=== PATIENT | female | born 1970 | race Hispanic/Latino ===

== ENCOUNTER 2019-08-03 15:20 | Observation (INO) | payer BC ==
[2019-08-03 15:54] VITALS: BMI 39.1
[2019-08-03] MEDS ORDERED: D50W 25 GM/50 ML SYRINGE IV PRN (16:01)
[2019-08-03] MEDS ORDERED: GLUCAGON 1 MG/VIAL IM PRN (16:01)
[2019-08-03] MEDS ORDERED: DIPHENHYDRAMINE 25 MG TAB/CAP PO PRN (16:03)
[2019-08-03] MEDS ORDERED: ACETAMINOPHEN 325 MG TABLET PO PRN (16:03)
[2019-08-03] MEDS ORDERED: POLYETHYL GLY 3350 17 GM/DOSE PO PRN (16:03)
[2019-08-03] MEDS ORDERED: SODIUM CHLORIDE 0.9% 10ML INJ IV PRN (16:03)
[2019-08-03] MEDS ORDERED: LOPERAMIDE HCL 2 MG CAPSULE PO PRN (16:03)
[2019-08-03] MEDS ORDERED: ONDANSETRON 4 MG/2 ML VIAL IV PRN (16:03)
[2019-08-03 16:27] LABS: Absolute Lymphocytes (CBC) 2.9 K/uL (0.7-4.9); Basophils % 0.7 % (0-1.3); Hematocrit 37.8 % (36.0-45.0); Lymphocytes % 32.8 % (15.3-44.8); MPV 9.2 fL (7.6-11.3); RBC Red Blood Cell Count 4.05 M/uL (3.86-4.86)
[2019-08-03] MEDS: INSULIN -REGULAR HUMAN 50 UNIT/0.5 ML ML SQ SCH ×2 (16:30→21:00)
[2019-08-03 16:33] LABS: Protime INR 1.03
[2019-08-03] MEDS ORDERED: INFLUENZA VACCINE (for 3y+) 0.5 ML DOSE IMVAC ONE (17:00)
[2019-08-03] MEDS ORDERED: PNEUMOCOCCAL VACCINE 0.5 ML IMVAC ONE (17:00)
[2019-08-03] MEDS ORDERED: CEFOXITIN/SWI 1gm 1 GM/10 ML SYR IVP SCH (17:00)
[2019-08-03] MEDS ORDERED: CEFOXITIN 2 GM in NA CHLORIDE 0.9% 100 ML IVPB SCH (17:00)
--- NOTE | 2019-08-03 17:01 | RAD REPORT ---
EXAM DESCRIPTION: RAD - Chest Pa And Lat (2 Views) - 08/03/2019 4:54 pm CLINICAL HISTORY: abd pain Chest pain. COMPARISON: Chest Pa And Lat (2 Views) dated 08/10/2017; CHEST PA AND LAT 2 VIEW dated 04/24/2015; [facility] SINGLE VIEW dated 03/18/2015; CHEST PA AND LAT 2 VIEW dated 03/14/2014 FINDINGS: The lungs are clear. The heart is normal in size. No displaced fractures. IMPRESSION: No acute or concerning finding suspected.
--- NOTE | 2019-08-03 17:04 | RAD REPORT ---
EXAM DESCRIPTION: CT - Stone Protocol - 08/03/2019 4:49 pm CLINICAL HISTORY: Flank pain. abd pain COMPARISON: Abdomen Pelvis W Contrast dated 08/10/2017 TECHNIQUE: Axial images were obtained without oral or IV contrast. Lack of contrast limits solid org an and vascular assessment. The [id number] spans the entirety of the system partially obscuring uppermost abdomen and lung bases. Coronal reformatted images were obtained and reviewed. All CT scans are performed using dose optimization technique as appropriate and may include automated exposure control or mA/KV adjustment according to patient size. FINDINGS: The lower lung schmidt are clear. Cholecystectomy clips. Imaged portions of the liver and spleen show no suspicious findings on non-contrast imaging. The panc reas and adrenal glands are normal. No pathologic lymphadenopathy in the abdomen or pelvis. No urinary tract stones or obstructive uropathy. No bowel obstruction, free air, free fluid or abscess. Normal appendix noted. Postsurgical changes involve the lower lumbar spine with hardware in place. Mild anterolisthesis of L 5 on S1 is noted. IMPRESSION: No urinary tract stones or obstructive uropathy. No acute process is demonstrated.
[2019-08-03 17:05] LABS: Urine Appearance CLEAR; Urine Bilirubin NEGATIVE (NEG); Urine Blood NEGATIVE (NEG); Urine Color YELLOW; Urine Glucose NEGATIVE (NEG); Urine Protein NEGATIVE (NEG); Urine Urobilinogen 0.2 mg/dL (0.2-1.0)
[2019-08-03 17:11] LABS: Albumin 3.6 g/dL (3.4-5.0); Bilirubin Direct 0.1 mg/dL (0-0.2); Bilirubin Total 0.4 mg/dL (0.2-1.0); Magnesium 1.8 mg/dL (1.8-2.4); Phosphorus 2.8 mg/dL (2.5-4.9); Potassium 3.6 mmol/L (3.5-5.1); Protein, Total 7.2 g/dL (6.4-8.2); Thyroid Stimulating Hormone 0.729 uIU/mL (0.360-3.740)
[2019-08-03] MEDS: NACHLORIDE 0.45% 1,000 ML IV SCH (17:18)
[2019-08-03] MEDS: HYDROMORPHONE HCL 1 MG/ML INJ IV PRN ×2 (17:18→20:47)
[2019-08-03] MEDS: CEFOXITIN/SWI 2gm 2 GM/20 ML SYR IV SCH (17:19)
[2019-08-03 17:21] LABS: UR MICROALBUMIN < 0.5 mg/dL (< 1.9)
[2019-08-03] MEDS: ENOXAPARIN 40 MG/0.4 ML SQ SCH (17:28)
[2019-08-03 17:39] VITALS: O2SAT 100
[2019-08-03 18:30] LABS: Urine Bacteria 20-50 /HPF (<20); Urine Culture Reflex Order REFLEXED; Urine RBC <5 /HPF (NONE SEEN)
[2019-08-03] MEDS ORDERED: POTASSIUM CL SA 10 MEQ TAB PO ONE (19:00)
[2019-08-03] MEDS ORDERED: MAGNESIUM SULFATE 1 gm IVPB 1 GM/100 ML BAG IV ONE (19:00)
[2019-08-04] MEDS: CEFOXITIN/SWI 2gm 2 GM/20 ML SYR IV SCH ×3 (00:58→17:55)
--- NOTE | 2019-08-04 05:14 | EKG ---
Test Date: 2019-08-03 Test Time: 17:14:29 Canoe Inspector: RADHA MEASUREMENT RESULTS: Intervals: Rate: 62 IL: 118 QRSD: 88 QT: 448 QTc: 454 [place]: P: 37 IL: 118 QRS: 35 T: 14 INTERPRETIVE STATEMENTS: Normal sinus rhythm Normal ECG Compared to ECG 08/10/2017 12:57:59 Sinus bradycardia no longer present Electronically Signed On 08-04-19 05:13:57 CDT by Jose Maldonado
[2019-08-04 05:37] LABS: Absolute Lymphocytes (CBC) 2.9 K/uL (0.7-4.9); Basophils % 0.5 % (0-1.3); Hematocrit 34.8 % (36.0-45.0); Lymphocytes % 36.9 % (15.3-44.8); MPV 9.1 fL (7.6-11.3); RBC Red Blood Cell Count 3.77 M/uL (3.86-4.86)
[2019-08-04 05:48] LABS: Magnesium 2.1 mg/dL (1.8-2.4); Potassium 3.8 mmol/L (3.5-5.1)
[2019-08-04] MEDS: HYDROMORPHONE HCL 1 MG/ML INJ IV PRN (06:26)
[2019-08-04] MEDS ORDERED: KCL 20 MEQ/100 mL IVPB 20 MEQ/100 ML BAG IV SCH (07:00)
[2019-08-04] MEDS: INSULIN -REGULAR HUMAN 50 UNIT/0.5 ML ML SQ SCH ×4 (07:30→21:00)
[2019-08-04] MEDS: LOSARTAN POTASSIUM 50 MG TABLET PO SCH (09:00)
--- NOTE | 2019-08-04 09:42 | RAD REPORT ---
EXAM DESCRIPTION: CT - Chest Angio - 08/04/2019 9:28 am CLINICAL HISTORY: D Dimer 541, mid sternal chest pain with shortness of breath COMPARISON: No comparisons TECHNIQUE: Dynamically enhanced 3 mm thick images of the chest were obtained during administration o f approximately 150mL Isovue 370 IV contrast. Coronal and oblique MIP reconstruction images were gene rated and reviewed. Exam utilizes a protocol to evaluate the pulmonary arterial tree. All CT scans are performed using dose optimization technique as appropriate and may include automated exposure control or mA/KV adjustment according to patient size. FINDINGS: No pulmonary emboli are identified. The aorta as imaged shows no acute or suspicious finding. No pericardial thickening or effusion. No infiltrate or mass in the lung parenchyma. No pleural effusion or pleural thickening. No mediastinal or hilar suspicious masses. No chest wall masses or abnormal axillary lymphadenopathy. IMPRESSION: No pulmonary emboli identified. No aortic abnormality. No other significant or suspicious findings.
[2019-08-04] MEDS: ENOXAPARIN 40 MG/0.4 ML SQ SCH (10:55)
[2019-08-04] MEDS: PANTOPRAZOLE 40 MG INJ IVP SCH (10:56)
[2019-08-04] MEDS ORDERED: LORazepam 2 MG/ML VIAL IV ONE (12:04)
--- NOTE | 2019-08-04 16:56 | RAD REPORT ---
EXAM DESCRIPTION: IJPFiotlskyeekpk67/17/2019 3:15 pm CLINICAL HISTORY: Abdominal pain COMPARISON: August 03 2019 cat scan TECHNIQUE: Magnetic resonance cholangiogram was performed.3D MIP reconstruction performed FINDINGS: Cholecystectomy The biliary tree is normal caliber without a filling defect. Pancreatic duct is normal caliber IMPRESSION: Unremarkable exam
--- NOTE | 2019-08-04 19:10 | RAD REPORT ---
EXAM DESCRIPTION: USExtrem Venous W Compress Bil08/04/2019 7:05 pm CLINICAL HISTORY: Bilateral leg swelling COMPARISON: 2016 FINDINGS: The common femoral, superficial femoral, popliteal and posterior tibial veins bilaterally are compressible and demonstrate augmentation. Doppler demonstrates good flow. IMPRESSION: No evidence of deep venous thrombosis involving either lower extremity.
--- NOTE | 2019-08-04 19:29 | RAD REPORT ---
EXAM DESCRIPTION: CT - Abdomen Pelvis W Contrast - 08/04/2019 6:38 pm CLINICAL HISTORY: Abdominal pain COMPARISON: 2017 TECHNIQUE: Computed axial tomography of the abdomen pelvis was obtained. 100 cc Isovue-300 was admin istered intravenously. Oral contrast was not requested which limits evaluation of bowel and appendix. All CT scans are performed using dose optimization technique as appropriate and may include automated exposure control or mA/KV adjustment according to patient size. FINDINGS: The liver, spleen, pancreas, adrenal and kidneys appear unremarkable. There is no evidence of diverticulitis. Postsurgical changes involve the lumbar spine Hysterectomy and cholecystectomy IMPRESSION: No acute abnormality is displayed.
--- NOTE | 2019-08-05 00:13 | PN ---
Subjective: Patient is still feeling a significant amount of pain. She denies any chest pain, nause a, vomiting. She has right upper abdominal pain which is mainly on the side near the edge of the abd omen on the upper side. There is no rash. The pain is chronic but worsened lately. She has had a f ull evaluation done by Dr. Hilliard before with endoscopy. Physical Examination: Vital Signs: Her blood pressure 124/50. Chest: Clear. Heart: Regular. Abdomen: No guarding, no rebound, no rigidity. There is tenderness in right upper quadrant as descr ibed above on the lateral side. Lab examination is normal. Her CT pulmonary angiogram done for D-dimer elevation was normal. Her CT abdomen stone protocol was normal. Now ordered MRCP because of slight alkaline phosphatase elevatio n and that was normal or suspected. She might have choledocholithiasis, which she did not. From to her D-dimer which is slightly high, may be a nonspecific finding without any other clinical findings. We will do hypercoagulation profile tomorrow. Order CT abdomen with contrast. She may need a colo noscopy done. We will also order a Prometheus inflammatory bowel disease panel and venous Doppler of both legs. KERRY/JO ANN Voice ID: [id number] Report ID: [id number]
[2019-08-05] MEDS: CEFOXITIN/SWI 2gm 2 GM/20 ML SYR IV SCH ×2 (01:20→09:35)
[2019-08-05] MEDS: NACHLORIDE 0.45% 1,000 ML IV SCH (05:46)
[2019-08-05 06:15] LABS: Potassium 4.5 mmol/L (3.5-5.1)
[2019-08-05] MEDS: INSULIN -REGULAR HUMAN 50 UNIT/0.5 ML ML SQ SCH ×2 (07:30→11:30)
[2019-08-05] MEDS: LOSARTAN POTASSIUM 50 MG TABLET PO SCH (08:40)
[2019-08-05] MEDS: ENOXAPARIN 40 MG/0.4 ML SQ SCH ×2 (08:40→08:46)
[2019-08-05] MEDS: PANTOPRAZOLE 40 MG INJ IVP SCH (08:40)
[2019-08-05 09:52] VITALS: BP 133/80; TEMP 98.2
--- NOTE | 2019-08-05 12:43 | P.DS ---
Admission Date: 08/03/19 Discharge Date: 08/05/19 Disposition: ROUTINE DISCHARGE Discharge Condition: FAIR Hospital Course: HALI WAS ADMITTED FOR SEVERE RUQ PAIN BUT NOTHING PANNED OUT. STONE PROTOCOL CT, WITH CONTRAST CT, MRCP DID NOT SHOW ANY ISSUES. I ALSO DID CT ANGIO CHEST SHE HAD HIGH D DIMER. AND VENOUS DOPPLER ALL WERE OKAY. SHE MAY HAVE RADICULAR PAIN FROM R SIDE SPINE ISSUES. SHE IS STABLE FOR DC AND WILL CONTACT DR. BARROSO FOR CRC. Vital Signs/Physical Exam: Temp Pulse Resp BP Pulse Ox 98.2 F 79 16 133/80 97 08/05/19 08:00 08/05/19 08:00 08/05/19 08:00 08/05/19 08:00 08/05/19 08:00 Laboratory Data at Discharge: WBC 7.9 K/uL (4.3-10.9) 08/04/19 05:19 Hgb 12.4 g/dL (12.0-15.0) 08/04/19 05:19 Hct 34.8 % (36.0-45.0) L 08/04/19 05:19 Plt Count 219 K/uL (152-406) 08/04/19 05:19 PT 12.1 SECONDS (9.5-12.5) 08/03/19 16:14 INR 1.03 08/03/19 16:14 APTT 30.4 SECONDS (24.3-36.9) 08/03/19 16:14 Sodium 142 mmol/L (136-145) 08/05/19 05:44 Potassium 4.5 mmol/L (3.5-5.1) 08/05/19 05:44 BUN 6 mg/dL (7-18) L 08/05/19 05:44 Creatinine 0.81 mg/dL (0.55-1.3) 08/05/19 05:44 Glucose 150 mg/dL (74-106) H 08/05/19 05:44 Phosphorus 2.8 mg/dL (2.5-4.9) 08/03/19 16:14 Magnesium 2.1 mg/dL (1.8-2.4) 08/04/19 05:19 Total Bilirubin 0.4 mg/dL (0.2-1.0) 08/03/19 16:14 AST 10 U/L (15-37) L 08/03/19 16:14 ALT 18 U/L (12-78) 08/03/19 16:14 Alkaline Phosphatase 126 U/L (45-117) H 08/03/19 16:14 Amylase 49 U/L (25-115) 08/03/19 16:14 Lipase 93 U/L (73-393) 08/03/19 16:14 Home Medications: Losartan Potassium 50 mg PO DAILY 04/24/15 Insulin Glargine,Hum.rec.anlog [Scotty Jerez] 40 unit SQ DAILY 06/16/16
[2019-08-09 03:35] LABS: Vitamin D 1,25-Dihydroxy Total 61 pg/mL (18-72); Vitamin D,1,25-OH2, D2 <8 pg/mL
[2019-08-09 12:43] LABS: Protein C Antigen 77 % (70-140)
== END 2019-08-05 11:40 | disposition home or self-care (01) ==
LOC: 2ND 15:20
PROVIDERS: ADMIT Internal Medicine; ATTEND Internal Medicine
DX: R10.11 Right upper quadrant pain (principal); E11.9 Type 2 diabetes mellitus without complications; I10 Essential (primary) hypertension
CPT/HCPCS: 93005; 87040; 87088; 85025 ×2; 81001; 87086; 80048 ×3; 36415 ×3; 82150; 83735 ×2; 84100; 85610; 82962 ×10; 85379; 80076; 85730; 82652; 84443; 83036; 82570; 82553; 82607; 83690; 81241; 86038; 86225; 83090; 85302; 85305; 85306; 86147 ×2; 82043; 76377; 71275; 74176; 74177; 71046; 93970; 74181; Q9967 ×2; C9113 ×2; J1650 ×2; J3475; J1170 ×3; J0694 ×2; J2405; G0379; G0378 ×4

== ENCOUNTER 2020-01-11 12:19 | Emergency (ER) | payer BC ==
--- NOTE | 2020-01-11 13:48 | ER ---
Nurse's Notes [facility] Name: Gracy Carter Age: 49 yrs Sex: Female : 1970 Arrival Date: 01/11/2020 Time: 13:22 Bed Waiting Private MD: Diagnosis: Presentation: 01/10 13:24 Chief complaint: Patient states: exposed to confirmed coronavirus patient on Thursday. dm5 Spent about 10 minutes with the person but the person was keeping the patient's grandson, and the patient spent the rest of Thursday and all of Thursday with the grandson. pt reports a fever of 100.1 at home and took alkeselsor cold and flu at 0200 this morning. Pt also reports cough and headache. Coronavirus screen: Patient reports a subjective fever or greater than 100.4F, or cough, or shortness of breath, or difficulty breathing. Surgical mask placed on patient. Patient moved to private room, placed in contact and droplet isolation with eye protection until further assessment. Patient denies travel on a cruise ship or to a country the [facility] currently lists as an affected area. Patient reports contact with known and/or suspected case of COVID-19. Infection Prevention Nurse has been notified of patient in isolation for probable COVID-19. Ebola Screen: Patient negative for fever greater than or equal to 101.5 degrees Fahrenheit, and additional compatible Ebola Virus Disease symptoms Patient denies exposure to infectious person. Patient denies travel to an Ebola-affected area in the 21 days before illness onset. No symptoms or risks identified at this time. Initial Sepsis Screen: Does the patient meet any 2 criteria? No. Patient's initial sepsis screen is negative. Does the patient have a suspected source of infection? No. Patient's initial sepsis screen is negative. Risk Assessment: Do you want to hurt yourself or someone else? Patient reports no desire to harm self or others. 13:24 Method Of Arrival: Ambulatory dm5 13:24 Acuity: RADHA 4 dm5 Vital Signs: 13:24 BP 127 / 88; Pulse 97; Resp 18; Temp 98.4; Pulse Ox 97% on R/A; Weight 99.34 kg; Height dm5 5 ft. 4 in. (162.56 cm); Pain 9/10; 13:24 Body Mass Index 37.59 (99.34 kg, 162.56 cm) dm5 ED Course: 13:22 Patient arrived in ED. dm5 13:26 Triage completed. dm5 13:44 pt left because she was able to get an appointment with the health department. dm5 Administered Medications: No medications were administered Outcome: 13:45 Patient left the ED. dm5 Signatures: Haven Betancourt, RN RN dm5
[2020-01-11 13:56] VITALS: BP 127/88; TEMP 98.4; O2SAT 97
== END 2020-01-11 13:45 | disposition left against medical advice (07) ==
LOC: ER 12:19
DX: Z53.21 Procedure and treatment not carried out due to patient leaving prior to being seen by health care provider (principal)
CPT/HCPCS: 99281

== ENCOUNTER 2020-01-16 01:48 | Emergency (ER) | payer BC ==
--- OUTSIDE RECORDS SUMMARY | 2020-01-16 01:52 | XMS REPORT | Summary of Care ---
:1970 Author Organization [facility] Address [address] [place] [id number] Care Team Providers Name Role Phone Emil Bertrand Primary Care Provider Reason for Visit Reason Comments Fever Body Aches Cough Fatigue Nausea Encounter Details Date Type Department Care Team Description 01/11/2020 Urgent Care [facility] Family Unknown, Attending Acute URI ( Primary Dx); Medicine - [place] Estelle Barnhart PA [address] [place] [id number] Fever, unspecified fever cause; [address] [place] [address] [address], [place] [address] Allergies No Known Allergiesdocumented as of this encounter (statuses as of 01/14/2020) Medications Medication Sig Dispensed Refills Start Date End Date Status insulin inject 30 Units 0 Active glargine,hum.rec.anlog under the skin. (TOUJEO MAX U-300 SOLOSTAR SC) losartan 50 mg tablet Take 50 mg by 0 Active mouth daily. Omeprazole 20 mg Take by mouth. 0 Active tablet documented as of this encounter (statuses as of 01/14/2020) Active Problems No known active problemsdocumented as of this encounter (statuses as of 2019) Social History Tobacco Use Types Packs/Day Years Used Date Never Smoker Smokeless Tobacco: Never Used Alcohol Use Drinks/Week oz/Week Comments Never Alcohol Habits Answer Date Recorded How often do you have a drink containing alcohol? Never 01/11/2020 How many drinks containing alcohol do you have on a typical Not asked day when you are drinking? How often do you have six or more drinks on one occasion? Not asked Sex Assigned at Date Recorded Not on file Job Start Date Occupation Industry Not on file Not on file Not on file Travel History Travel Start Travel End No recent travel history available. documented as of this encounter Last Filed Vital Signs Vital Sign Reading Time Taken Comments Blood Pressure 121/84 01/11/2020 2:51 PM CDT Pulse 103 01/11/2020 2:41 PM CDT Temperature 38.8 C (101.8 F) 01/11/2020 2:41 PM CDT Respiratory Rate 19 01/11/2020 2:41 PM CDT Oxygen Saturation 98% 01/11/2020 2:41 PM CDT Inhaled Oxygen Concentration - - Weight - - Height - - Body Mass Index - - documented in this encounter Progress Notes Estelle Barnhart PA - 01/11/2020 3:00 PM CDT Cc: Chief Complaint Patient presents with Fever Body Aches Cough Fatigue Nausea Hali Teran is a 49 year old female. Patient presents with URI symptoms that began 2-3 days. Fever started last night , Tmax: 100.1. Travel: [facility], [place] 1 week ago. Known COVID19 exposure? Son's qvkeed-uk-nlk tested positive for COVID19. She was in contact with her 5 days ago. URI Presenting symptoms: congestion, cough, fatigue and fever Presenting symptoms: no ear pain, no facial pain, no rhinorrhea and no sore throat Duration: 2 days Timing: Intermittent Progression: Unchanged Chronicity: New Worsened by: Nothing Ineffective treatments: shawn nugent cold Associated symptoms: arthralgias and headaches (frontal, not worst CASE of life, not sudden/max onset.states she can deal with it) Associated symptoms: no myalgias, no neck pain, no sinus pain, no sneezing, no swollen glands and nowheezing Risk factors: chronic cardiac disease (HTN), diabetes mellitus and sick contacts Risk factors: not elderly, no chronic kidney disease, no chronic respiratory disease, no immunosuppression, no recent illness and no recent travel Allergies Hali has No Known Allergies. Medications Outpatient Medications Prior to Visit Medication Sig Dispense Refill insulin glargine,hum.rec.anlog (TOUJEO MAX U-300 SOLOSTAR SC) inject 30 Units under the skin. losartan 50 mg tablet Take 50 mg by mouth daily. Omeprazole 20 mg tablet Take by mouth. No facility-administered medications prior to visit. Histories Past Medical History: Diagnosis Date Diabetes Hypertension Past Surgical History: Procedure Laterality Date BACK SURGERY HYSTERECTOMY Social History Socioeconomic History Marital status: Spouse name: Not on file Number of children: Not on file Years of education: Not on file Highest education level: Not on file Occupational History Not on file Social Needs Financial resource strain: Not on file Food insecurity: Worry: Not on file Inability: Not on file Transportation needs: Medical: Not on file Non-medical: Not on file Tobacco Use Smoking status: Never Smoker Smokeless tobacco: Never Used Substance and Sexual Activity Alcohol use: Never Frequency: Never Drug use: Never Sexual activity: Not on file Lifestyle Physical activity: Days per week: Not on file Minutes per session: Not on file Stress: Not on file Relationships Social connections: Talks on phone: Not on file Gets together: Not on file Attends nondenominational service: Not on file Active member of club or organization: Not on file Attends meetings of clubs or organizations: Not on file Relationship status: Not on file Intimate partner violence: Fear of current or ex partner: Not on file Emotionally abused: Not on file Physically abused: Not on file Forced sexual activity: Not on file Other Topics Concern Not on file Social History Narrative Lives at home with , daughter Family History Problem Relation Age of Onset Diabetes Mother Cancer Mother Diabetes Father Review of Systems Constitutional: Positive for chills, fatigue and fever. Negative for activity change, appetite change and diaphoresis. HENT: Positive for congestion and postnasal drip. Negative for ear pain, facial swelling, mouth sores, rhinorrhea, sinus pressure, sinus pain, sneezing, sore throat, trouble swallowing and voice change. Eyes: Positive for discharge (watery). Negative for pain, redness and itching. Respiratory: Positive for cough. Negative for chest tightness, shortness of breath and wheezing. Cardiovascular: Negative for chest pain, palpitations and leg swelling. Gastrointestinal: Positive for nausea. Negative for abdominal pain, constipation , diarrhea and vomiting. Genitourinary: Negative for dysuria, urgency, frequency and flank pain. Musculoskeletal: Positive for arthralgias. Negative for back pain, joint swelling, myalgias, neck pain and neck stiffness. Skin: Negative for color change and rash. Neurological: Positive for headaches (frontal, not worst CASE of life, not sudden/ max onset. states she can deal with it). Negative for dizziness, syncope, weakness and light-headedness. Vital Signs BP 121/84 | Pulse 103 | Temp 38.8 C (101.8 F) (Oral) | Resp 19 | SpO2 98 % Physical Exam Constitutional: She is oriented to person, place, and time. She appears well- developed and well-nourished. No distress. HENT: Head: Normocephalic and atraumatic. Right Ear: Tympanic membrane, external ear and ear canal normal. Left Ear: Tympanic membrane, external ear and ear canal normal. Nose: Mucosal edema present. No rhinorrhea. Right sinus exhibits no maxillary sinus tenderness and no frontal sinus tenderness. Left sinus exhibits no maxillary sinus tenderness and no frontal sinus tenderness. Mouth/Throat: Oropharynx is clear and moist. No oropharyngeal exudate. + clear post nasal drip Eyes: Conjunctivae are normal. Neck: Normal range of motion. Neck supple. No neck rigidity. Cardiovascular: Normal rate, regular rhythm and normal heart sounds. Pulmonary/Chest: Effort normal and breath sounds normal. Abdominal: Soft. Bowel sounds are normal. She exhibits no distension. There is no tenderness. There is no rebound and no guarding. Musculoskeletal: Normal range of motion. She exhibits no edema. Lymphadenopathy: She has no cervical adenopathy. Neurological: She is alert and oriented to person, place, and time. Skin: Skin is warm and dry. No rash noted. She is not diaphoretic. Psychiatric: She has a normal mood and affect. Her behavior is normal. Nursing note and vitals reviewed. Assessment/Plan Acute URI (primary encounter diagnosis) Fever, unspecified fever cause Cough Plan: POCT FLU A AND B (MOLECULAR), CORONAVIRUS COVID-19 TESTING, CORONAVIRUS COVID-19 TESTING Results for HALI TERAN ( ) as of 01/12/2020 10:16 Ref. Range 01/11/2020 00:00 POCT INFLUENZA A Latest Ref Range: Negative - Negative negative POCT INFLUENZA B Latest Ref Range: Negative - Negative negative Well appearing, NAD, non-toxic. Lungs CTAB. O2 sat 98%. No shortness of breath. No respiratory distress. Negative flu. Patient with confirmed COVID-19 exposure , will get COVID 19 testing to further evaluate. Educated on the following at home care: -Increase water intake -Take over the counter vitamin C -Take Tylenol as needed, avoid nsaids, do not combine with Tylenol in the shawn seltzer. -Offered cough suppressant. Patient prefers to continue taking otc shawn seltzer cold. -REST -Wash hands often -Cover mouth when coughing -Wear mask with in the same room/car as others -Gargle with warm salt water as needed -Drink warm liquids as needed. -Throat lozenges as needed -Quarantine until your COVID results are back -Stay in your own bedroom and use a separate bathroom -Keep at least 6 feet from you and others -Avoid sharing personal household items, dishes, glasses, cups, towels -Clean high traffic/touch areas daily. These include but not limited to: doorknobs, refrigerator/cabinet handles, phones, keyboards, tablets, light switches. -Monitor your symptoms. Take your temperature 2 times daily. -Follow-up with PCP as needed, if no improvement. -Monitor your symptoms. Go to the ED if worsening symptoms: chest pain, difficulty breathing, coughing up blood, weakness, dizziness, passing out, AMS. Pt ed/precautions given in detail regarding conditions/medicaitons. Er precautions given. Pt reportsunderstanding and agrees. rtc if s/s worsen or do not improve; Plan of care, desired health behaviors, goals, Ddx, & any prescribed or OTC medications discussed with patient. Education resources & self management tools provided and reviewed with AVS. Patient/guardian/family verbalized understanding & agrees to plan of care. Barriers to care: NONE Ability to manage care: Good This visit did not involve counseling and coordination that comprised more than 50% of the visit time.Electronically signed by Estelle Barnhart PA at 2019 2:27 PM CDTdocumented in this encounter Plan of Treatment Health Maintenance Due Date Last Done Comments DTaP,Tdap,and Td Vaccines (1 - 1983 Tdap) Breast Cancer Screening 2012 (MAMMOGRAM) PAP SMEAR 10/07/2014 10/07/2011 INFLUENZA VACCINE (#1) 2019 PNEUMOCOCCAL 0-64 YEARS COMBINED Aged Out No longer eligible based on SERIES patient's age to complete this topic documented as of this encounter Procedures Procedure Name Priority Date/Time Associated Diagnosis Comments LAB ONLY CORONAVIRUS Routine 01/11/2020 2:46 Fever, unspecified Results for this COVID-19 PCR GNL PM CDT fever cause procedure are in Cough the results Acute URI section. CORONAVIRUS COVID-19 Routine 01/11/2020 2:46 Fever, unspecified Results for this TESTING PM CDT fever cause procedure are in Cough the results Acute URI section. POCT FLU A AND B Routine 01/11/2020 Fever, unspecified Results for this (MOLECULAR) fever cause procedure are in Cough the results Acute URI section. documented in this encounter Results LAB ONLY CORONAVIRUS COVID-19 PCR GNL (01/11/2020 2:46 PM CDT) SARS-CoV-2 Positive (A) Not Detected [facility] Specimen Swab - NASOPHARYNGEAL SWAB Narrative Performed At Not Detected: [facility] A negative result does not preclude COVID-19 infection and should not be used as the sole basis for treatment or other patient management decisions. Negative results must be combined with clinical observations, patient history, and epidemiological information. Presumptive Positive: Specimen will be sent to [facility] for confirmation testing. Inconclusive: Specimen will be sent to [facility] for additional testing. Invalid: Please collect a new specimen for repeat patient testing. Disclaimer: This test was developed and its performance characteristics determined by [facility]. It has not been cleared or approved by the US Food and Drug Administration (FDA). An Emergency Use Authorization (EUA) application is under preparation and FDA approval process. This test is used for clinical purposes. It should not be regarded as investigational or for research. This laboratory is certified under the Clinical Laboratory Improvement Amendments (CLIA) as qualified to perform high complexity clinical laboratory testing. Performing Organization Address City/State/Zipcode Phone Number [facility] CLIA: [id number], [address] [place] [address] [facility] CORONAVIRUS COVID-19 TESTING (01/11/2020 2:46 PM CDT) Specimen Swab - NASOPHARYNGEAL SWAB Performing Organization Address City/State/Zipcode Phone Number [facility] CLIA: [id number], [address] [place] [address] [facility] POCT FLU A AND B (MOLECULAR) (01/11/2020) POCT INFLUENZA A negative Negative - Negative POCT INFLUENZA B negative Negative - Negative Specimen Swab documented in this encounter Visit Diagnoses Diagnosis Acute URI - Primary Acute upper respiratory infections of unspecified site Fever, unspecified fever cause Cough documented in this encounter Insurance Payer Benefit Plan Subscriber ID Effective Dates Phone Address Type / Group [facility] [id number] 2018-Raghavendra [phone] [address] PPO/POS [place] - OUT OF t 7 [id number] [place] [address] (Work) documented as of this encounter"
--- OUTSIDE RECORDS SUMMARY | 2020-01-16 01:52 | XMS REPORT ---
:1970 [facility] Address [address] [place] [address] Dr. Sierra [address] [place] [id number] Care Team Providers Name Role Phone Unavailable Unavailable Unavailable Problems This patient has no known problems. Allergies, Adverse Reactions, Alerts This patient has no known allergies or adverse reactions. Medications This patient has no known medications.
--- OUTSIDE RECORDS SUMMARY | 2020-01-16 01:52 | XMS REPORT | Summary of Care ---
:1970 Author Organization [facility] Address [address] [place] [id number] Care Team Providers Name Role Phone Elza Emil Primary Care Provider Reason for Visit Reason Comments Results Encounter Details Date Type Department Care Team Description 01/13/2020 Telephone ACCESS CENTER Estelle Barnhart PA Results [address] [address] [place] [address] Allergies No Known Allergiesdocumented as of this encounter (statuses as of 01/13/2020) Medications Medication Sig Dispensed Refills Start Date End Date Status insulin inject 30 Units 0 Active glargine,hum.rec.anlog under the skin. (TOUJEO MAX U-300 [place]) losartan 50 mg tablet Take 50 mg by 0 Active mouth daily. Omeprazole 20 mg Take by mouth. 0 Active tablet documented as of this encounter (statuses as of 01/13/2020) Active Problems No known active problemsdocumented as [...] of this encounter Last Filed Vital Signs Not on filedocumented in this encounter Plan of Treatment Health Maintenance Due Date Last Done Comments DTaP,Tdap,and Td Vaccines (1 - 1983 Tdap) Breast Cancer Screening 2012 (MAMMOGRAM) PAP SMEAR 10/07/2014 10/07/2011 INFLUENZA VACCINE (#1) 2019 PNEUMOCOCCAL 0-64 YEARS COMBINED Aged Out No longer eligible based on SERIES patient's age to complete this topic documented as of this encounter Results Not on filedocumented in this encounter Additional Health Concerns Infection Noted Time Resolved Time COVID-19 Confirmed 01/12/2020 7:12 PM CDT documented as of this encounter Insurance Payer Benefit Plan Subscriber ID Effective Dates Phone Address Type / Group [facility] [id number] 2018-Raghavendra [phone] [address] PPO/POS [place] - OUT OF t 7 [id number] [place] [address] documented as of this encounter
[2020-01-16] MEDS ORDERED: IBUPROFEN 400 MG TAB ONE (02:15)
[2020-01-16] MEDS ORDERED: HYDROCODONE/CHLORPHEN 5 ML/OSYR ONE (02:17)
--- NOTE | 2020-01-16 02:51 | ER ---
Nurse's Notes [facility] Name: Gracy Carter Age: 49 yrs Sex: Female : 1970 Arrival Date: 01/16/2020 Time: 01:43 Bed 30 Private MD: Diagnosis: Coronavirus as the cause of diseases classified elsewhere;Acute bronchitis Presentation: 01/15 01:47 Chief complaint: Patient states: Reports she has been having fever for the past 6 days. ea Pt states " I was tested for the COVID last week and I have been having a fever since. Pt reports she last took Tylenol yesterday at 5 PM. Reports she has tried taking Tylenol every four hours and it has not helped her fever. States "today I blew my nose and bright red blood came out, I am diabetic and my blood sugar is in the 300's, I just don't think this is viral". Coronavirus screen: Pt COVID positive, placed in isolation, on droplet precaution. Ebola Screen: No symptoms or risks identified at this time. Initial Sepsis Screen: Does the patient meet any 2 criteria? HR > 90 bpm. Does the patient have a suspected source of infection? No. Patient's initial sepsis screen is negative. Risk Assessment: Do you want to hurt yourself or someone else? Patient reports no desire to harm self or others. 01:47 Method Of Arrival: Wheelchair ea 01:47 Acuity: RADHA 3 ea Triage Assessment: 01:58 General: Appears uncomfortable, Behavior is appropriate for age. Neuro: Level of ea Consciousness is awake, alert, obeys commands, Oriented to person, place, time, situation. Cardiovascular: Patient's skin is warm and dry. Respiratory: Airway is patent Respiratory effort is even, unlabored, Respiratory pattern is regular, symmetrical. Derm: Skin is pink, warm \\T\\ dry. Historical: - Allergies: 01:57 No Known Allergies; ea - PMHx: 01:57 Diabetes - IDDM; Hypertension; ea - Immunization history:: Adult Immunizations up to date. Screenin:55 Abuse screen: Denies threats or abuse. Nutritional screening: No deficits noted. ea Tuberculosis screening: No symptoms or risk factors identified. Fall Risk None identified. Assessment: 01:58 General: Appears uncomfortable, Behavior is appropriate for age. Pain: Complains of ea pain in nose. Pain: Quality of pain is described as burning. Neuro: Level of Consciousness is awake, alert, obeys commands, Oriented to person, place, time, situation. Cardiovascular: Patient's skin is warm and dry. Respiratory: Airway is patent Respiratory effort is even, unlabored, Respiratory pattern is regular, symmetrical. Derm: Skin is pink, warm \\T\\ dry. Vital Signs: 01:47 BP 137 / 96; Pulse 97; Resp 19; Temp 100(O); Pulse Ox 99% ; ea 02:16 BP 133 / 93; Resp 19; Temp 100; Pulse Ox 99% on R/A; cp 03:06 BP 133 / 93; Pulse 89; Resp 18; Temp 100; Pulse Ox 97% on R/A; ED Course: 01:43 Patient arrived in ED. sg 01:55 Triage completed. ea 01:56 Eric Noguera PA is PHCP. cp 01:56 Pal Grissom MD is Attending Physician. cp 01:56 Patient has correct armband on for positive identification. Placed in gown. Bed in low ea position. Call light in reach. 01:56 Arm band placed on right wrist. Patient placed in an exam room, on a stretcher, on ea pulse oximetry. 01:58 Brittany Blake, DUNCAN is Primary Nurse. ea 02:24 X-ray(s) taken. 02:41 Nurse Practitioner and/or Physician Tumbler Machine Operator to see patient. ah 02:42 XRAY Chest (1 view) In Process Unspecified. EDMS 03:06 No provider procedures requiring assistance completed. Patient did not have IV access during this emergency room visit. Administered Medications: 02:10 CANCELLED (not available): Albuterol HFA Inhaler 2 puffs Inhalation once cp 02:23 Drug: Ibuprofen 800 mg Route: PO; ea 03:11 Follow up: Response: No adverse reaction ah 02:23 Drug: Tussionex Pennkinetic ER 5 ml Route: PO; ea 03:11 Follow up: Response: No adverse reaction Outcome: 02:50 Discharge ordered by . cp 02:58 Discharged to home via wheelchair. 02:58 Condition: stable 02:58 Discharge instructions given to patient, Instructed on discharge instructions, follow up and referral plans. medication usage, Demonstrated understanding of instructions, follow-up care, medications, Prescriptions given X 2. 03:12 Patient left the ED. Signatures: Dispatcher [employer] EDMS Vinicio Medrano, RN RN Eric Elizabeth PA PA cp Antunez, Elena RN RN Ana Huntley RN RN
--- NOTE | 2020-01-16 02:51 | EDPHYS ---
Physician Documentation [facility] Name: Gracy Carter Age: 49 yrs Sex: Female : 1970 Arrival Date: 01/16/2020 Time: 01:43 Bed 30 Private MD: ED Physician Pal Grissom HPI: 01/15 02:09 This 49 yrs old Female presents to ER via Wheelchair with complaints of Fever cp - + COVID 19. 02:09 The patient or guardian reports cough, that is constant, with productive sputum, that cp is green. 02:09 Onset: The symptoms/episode began/occurred 5 day(s) ago. cp 02:09 The patient reports fever, with an emergency department temperature of 100 degrees cp Fahrenheit. 02:12 Patient reports having positive test for coronavirus 3 days ago after contact with cp nurse who works at local oncology center in [place]. Symptoms started 5 days ago. Historical: - Allergies: 01:57 No Known Allergies; ea - PMHx: 01:57 Diabetes - IDDM; Hypertension; ea - Immunization history:: Adult Immunizations up to date. ROS: 02:13 Eyes: Negative for injury, pain, redness, and discharge. cp 02:13 Constitutional: Positive for body aches, Negative for fever, poor PO intake. 02:13 ENT: Positive for rhinorrhea, sore throat, Negative for drainage from ear(s), ear pain, difficulty swallowing, difficulty handling secretions. 02:13 Cardiovascular: Positive for chest pain, with cough, Negative for edema, palpitations. 02:13 Respiratory: Positive for cough, with green sputum, shortness of breath, Negative for wheezing. 02:13 Abdomen/GI: Positive for diarrhea, Negative for abdominal pain, vomiting, constipation. 02:13 Skin: Negative for cellulitis, rash. 02:13 Neuro: Positive for weakness, Negative for altered mental status, headache. 02:13 All other systems are negative. Exam: 02:16 Head/Face: Normocephalic, atraumatic. cp 02:16 Constitutional: The patient appears in no acute distress, alert, awake, non-diaphoretic, non-toxic, well developed, well nourished. 02:16 Eyes: Periorbital structures: appear normal, Conjunctiva: normal, no exudate, no injection, Lids and lashes: appear normal, bilaterally. 02:16 ENT: External ear(s): are unremarkable, Ear canal(s): are normal, clear, TM's: dullness, bilaterally, Nose: is normal, Posterior pharynx: Airway: no evidence of obstruction, patent. 02:16 Neck: ROM/movement: is normal, is supple, without pain, no range of motions limitations, no meningismus. 02:16 Chest/axilla: Inspection: normal. 02:16 Cardiovascular: Rate: normal. 02:16 Respiratory: the patient does not display signs of respiratory distress, Respirations: normal, no use of accessory muscles, no retractions, labored breathing, is not present, Breath sounds: stridor, is not appreciated, + upper airway congestion. wheezing: is not appreciated. 02:16 Abdomen/GI: Exam negative for discomfort, distension, guarding, Inspection: abdomen appears normal. 02:16 Skin: no rash present. 02:16 Neuro: Orientation: to person, place \T\ time. Mentation: is normal, Motor: moves all fours. 02:16 Special observations: no signs respiratory distress observed. Vital Signs: 01:47 BP 137 / 96; Pulse 97; Resp 19; Temp 100(O); Pulse Ox 99% ; ea 02:16 BP 133 / 93; Resp 19; Temp 100; Pulse Ox 99% on R/A; cp 03:06 BP 133 / 93; Pulse 89; Resp 18; Temp 100; Pulse Ox 97% on R/A; ah MDM: 02:04 Patient medically screened. cp 02:22 Differential diagnosis: respiratory distress viral Infection, bacterial infection, cp bronchitis, pneumonia. 02:49 Test interpretation: by ED physician or midlevel provider: chest xray negative for cp infiltrates and focal pneumonia. 02:49 Data reviewed: vital signs, nurses notes, lab test result(s), radiologic studies, plain cp films. Counseling: I had a detailed discussion with the patient and/or guardian regarding: the historical points, exam findings, and any diagnostic results supporting the discharge/admit diagnosis, lab results, radiology results, to return to the emergency department if symptoms worsen or persist or if there are any questions or concerns that arise at home. Response to treatment: the patient's symptoms have markedly improved after treatment, and as a result, I will discharge patient. ED course: VSS. Patient appears non-toxic and no signs of respiratory distress. Will discharge to home to continue self quarantine and symptomatic treatment. 01/15 02:41 Order name: Glucose, Ancillary Testing; Complete Time: 02:49 EDCT 01/15 02:49 Interpretation: Reviewed. 01/15 02:08 Order name: XRAY Chest (1 view) 01/15 02:08 Order name: Accucheck Blood Glucose; Complete Time: 02:25 cp Administered Medications: 02:10 CANCELLED (not available): Albuterol HFA Inhaler 2 puffs Inhalation once cp 02:23 Drug: Ibuprofen 800 mg Route: PO; ea 03:11 Follow up: Response: No adverse reaction 02:23 Drug: Tussionex Pennkinetic ER 5 ml Route: PO; ea 03:11 Follow up: Response: No adverse reaction Disposition: 05:37 Co-signature as Attending Physician, Pal Grissom MD. rn Disposition: 01/16/20 02:50 Discharged to Home. Impression: Coronavirus as the cause of diseases classified elsewhere, Acute bronchitis. - Condition is Stable. - Discharge Instructions: Acute Bronchitis, Adult, Viral Respiratory Infection. - Prescriptions for Albuterol Sulfate 90 mcg/actuation - inhale 1-2 puff by INHALATION route every 4-6 hours; 1 Inhaler. Guaifenesin AC 10- 100 mg/5 mL Oral Liquid - take 10 milliliter by ORAL route every 4 hours As needed; 240 milliliter. - Medication Reconciliation Form, Thank You Letter, Antibiotic Education, Prescription Opioid Use form. - Follow up: Emergency Department; When: As needed; Reason: Worsening of condition. - Problem is new. - Symptoms have improved. - Notes: continue to self quarantine for at least 14 days from onset of symptoms Signatures: Dispatcher [employer] EDCT Pal Grissom MD MD rn Page, Corey, PA PA cp Antunez, Elena, RN RN ea Harris, Amy RN RN Corrections: (The following items were deleted from the chart) 02:10 02:08 Albuterol HFA Inhaler 2 puffs Inhalation once ordered. cp 03:12 02:50 01/16/2020 02:50 Discharged to Home. Impression: Coronavirus as the cause of ah diseases classified elsewhere; Acute bronchitis. Condition is Stable. Forms are Medication Reconciliation Form, Thank You Letter, Antibiotic Education, Prescription Opioid Use. Follow up: Emergency Department; When: As needed; Reason: Worsening of condition. Problem is new. Symptoms have improved. cp
[2020-01-16 03:19] VITALS: BP 133/93; TEMP 100
[2020-01-16 03:20] VITALS: O2SAT 97
--- NOTE | 2020-01-16 07:32 | RAD REPORT ---
EXAM DESCRIPTION: RAD - Chest Single View - 01/16/2020 2:41 am CLINICAL HISTORY: Cough;Chest pain, hyperglycemia COMPARISON: Two view chest July 2019 TECHNIQUE: AP portable chest image was obtained 01/16/2020 2:41 am . FINDINGS: Lungs are clear. Heart and vasculature are normal. No measurable pleural effusion and no p neumothorax. No acute bony abnormality seen. No acute aortic findings suspected. IMPRESSION: No acute cardiopulmonary process.
== END 2020-01-16 03:12 | disposition home or self-care (01) ==
LOC: ER 01:48
DX: J20.9 Acute bronchitis, unspecified (principal); B97.29 Other coronavirus as the cause of diseases classified elsewhere; I10 Essential (primary) hypertension
CPT/HCPCS: 71045; 82947; 99284

== ENCOUNTER 2021-12-17 09:03 | Observation (INO) | payer BC ==
[2021-12-17 10:20] LABS: Absolute Lymphocytes (CBC) 2.3 K/uL (0.7-4.9); Hematocrit 40.3 % (36.0-45.0); Lymphocytes % 31.7 % (15.3-44.8); MPV 8.6 fL (7.6-11.3); RBC Red Blood Cell Count 4.29 M/uL (3.86-4.86)
[2021-12-17 10:26] LABS: Protime INR 1.03
[2021-12-17 10:37] LABS: Urine Appearance CLEAR (Clear); Urine Bilirubin NEGATIVE (Negative); Urine Blood NEGATIVE (Negative); Urine Color YELLOW (Yellow); Urine Glucose NEGATIVE (Negative); Urine Protein NEGATIVE (Negative); Urine Urobilinogen 0.2 mg/dL (0.2-1.0); Urine pH 7.5 (5.0-7.0)
[2021-12-17 10:43] LABS: Urine Microscopic Reflex NO UMIC
[2021-12-17 10:55] LABS: ALT/SGPT 21 U/L (12-78); AST/SGOT 13 U/L (15-37); Albumin 3.5 g/dL (3.4-5.0); Alkaline Phosphatase 91 U/L (45-117); Amylase 48 U/L (25-115); BUN Blood Urea Nitrogen 8 mg/dL (7-18); Bicarbonate 28 mmol/L (21-32); Bilirubin Direct 0.1 mg/dL (0-0.2); Bilirubin Total 0.5 mg/dL (0.2-1.0); Glucose Level 123 mg/dL (74-106); Lipase 122 U/L (73-393); Magnesium 2.1 mg/dL (1.8-2.4); Phosphorus 2.3 mg/dL (2.5-4.9); Potassium 4.5 mmol/L (3.5-5.1); Protein, Total 7.3 g/dL (6.4-8.2); Sodium Level 138 mmol/L (136-145); Thyroid Stimulating Hormone 0.619 uIU/mL (0.360-3.740)
--- OUTSIDE RECORDS SUMMARY | 2021-12-17 12:50 | XMS REPORT | Continuity of Care Document ---
:1970 Author Organization [facility] t Address [address] [place] [address] Care Team Providers Name Role Phone Paul Curtis Attending Clinician Pob1, Care Clinic Attending Clinician Unavailable Unknown Attending Clinician Unavailable UNKNOWN Attending Clinician Unavailable Payers Payer Name Policy Type Policy Number Effective Date Expiration Date S ource Problems Condition Condition Condition Status Onset Resolution Last Treating Co mments Source Name Details Category Date Date Treatment Clinician Date No known No known Disease Unive rs active active ity of problems problems [facility] Allergies, Adverse Reactions, Alerts Allergy Allergy Status Severity Reaction(s) Onset Inactive Treating Comm ents Source Name Type Date Date Clinician NO KNOWN Drug Active Univers ALLERGIE Class ity of S [facility] Social History Social Habit Start Date Stop Date Quantity Comments Source History [facility] [place] Alcohol Std Drinks Medica l Branch History [facility] [place] Alcohol Binge Medical Bra [facility] [place] [facility] Alcohol intake 2020-01-11 2020-01-11 [facility] 00:00:00 00:00:00 Medical Branch History SDOH 2020-01-11 2020-01-11 1 [employer] [facility] [place] Alcohol Frequency 00:00:00 00:00:00 Medical Branch Smoking Status Start Date Stop Date Source Never smoker [facility] Medications Ordered Filled Start Stop Current Ordering Indication Dosage Frequency Signature Comments Components Source Medication Medication Date Date Medication? Clinician (SIG) Name Name losartan 50 2019- Yes 50mg Take 50 mg Univers mg tablet 3-25 by mouth ity of 20:02: daily. [address] Omeprazole Yes Take by Uni vers 20 mg 3-25 mouth. ity of tablet 20:02: [address] insulin Yes 30U inject 30 Unive rs glargine,hu 3-25 Units ity of m.rec.anlog 20:02: [place] (TOUJEO MAX 40 skin. Medical U-300 [facility]) losartan 50 2019- Yes 50mg Take 50 mg Univers mg tablet 3-25 by mouth ity of 20:02: daily. [address] Omeprazole Yes Take by Uni vers 20 mg 3-25 mouth. ity of tablet 20:02: [address] insulin Yes 30U inject 30 Unive rs glargine,hu 3-25 Units ity of m.rec.anlog 20:02: [place] (TOUJEO MAX 40 skin. Medical U-[address] [facility]) Vital Signs Vital Name Observation Time Observation Value Comments Source Systolic blood 2020-01-11 19:51:00 121 mm[Hg] Univer sity of [facility] Diastolic blood 2020-01-11 19:51:00 84 mm[Hg] Unive [facility] Heart rate 2020-01-11 19:41:00 103 /min [facility] Body temperature 2020-01-11 19:41:00 38.78 [place] [facility] Respiratory rate 2020-01-11 19:41:00 19 /min [facility] Oxygen saturation in 2020-01-11 19:41:00 98 /min [facility] blood by [facility] Pulse oximetry Branch Systolic blood 2020-01-11 19:51:00 121 mm[Hg] Univer sity of [facility] Diastolic blood 2020-01-11 19:51:00 84 mm[Hg] Unive rsity of [facility] Heart rate 2020-01-11 19:41:00 103 /min [facility] Body temperature 2020-01-11 19:41:00 38.78 [facility] 2020-01-11 19:41:00 19 /min [facility] Oxygen saturation in 2020-01-11 19:41:00 98 /min University Arterial blood by [facility] Pulse oximetry Branch Procedures Procedure Date / Time Performing Clinician Source Performed LAB ONLY CORONAVIRUS 2020-01-11 19:46:00 Estelle Barnhart [facility] COVID-19 PCR [facility] POCT FLU A AND B 2020-01-11 00:00:00 Estelle Barnhart [facility] ([facility]) [facility] Encounters Start End Encounter Admission Attending Care Care Encounter Source Date/Time Date/Time Type Type Clinicians Facility Department ID 2020-01-13 2020-01-13 Telephone ObeyBERNA ellis [id number] [facility] 00:00:00 00:00:00 Estelle MCCAULEY [id number] [facility] [id number] Zaid as [id number] [facility] 019 Branch 2020-01-13 2020-01-13 Telephone ObeyBERNA [id number] 00:00:00 00:00:00 Estelle MCCAULEY [id number] [facility] [id number] 2020-01-11 2020-01-11 Urgent Pob1, Acute Care Clinic [facility] [id number] Univers 14:29:54 16:07:16 Care Unknown, Attending Health [id number] [facility] Estelle Barnhart [place] [id number] [place] [facility] [phone] Or dical nal [address] [place] [address] [address] 2020-01-11 2020-01-11 Urgent Pob1, Acute [facility] [id number] 14:29:54 16:07:16 Care [facility] [id number] [place] [phone] [facility] Office [address] 2020-01-11 2020-01-11 Outpatient R UNKNOWN, [facility] [id number] Univers 15:00:00 15:00:[address] [facility] Results Test Description Test Time Test Comments Results Result Comments Source LAB ONLY CORONAVIRUS COVID-[address] [facility] 2020-01-12 20:54:00 Test Item Value Reference Range Interpretation Comme nts SARS-CoV-2 (test code = Positive Not Detected A [id number]) OCTAVIO (test code = OCTAVIO) Not Detected: A negative result does not preclude COVID-19 infection and should not be used as the sole basis for treatment or other patient management decisions. Negative results must be combined with clinical observations, patient history, and epidemiological information. Presumptive Positive: Specimen will be sent to [facility] for confirmation testing. Inconclusive: Specimen will be sent to [facility] for additional testing. Invalid: Please collect a new specimen for repeat patient testing. Disclaimer:This test was developed and its performance characteristics determined by [facility]. It has not been cleared or [...] to perform high complexity clinical laboratory testing. Lab Interpretation (test code = Abnormal [id number]) [facility]2020-[facility]-11 20:15:00 Test Item Value Reference Range Interpretation Comments POCT INFLUENZA A (test code = negative Negative - Negative 3840) POCT INFLUENZA B (test code = negative Negative - Negative 3841) [facility]
[2021-12-17] MEDS ORDERED: D50W 25 GM/50 ML SYRINGE IV PRN (13:35)
[2021-12-17] MEDS ORDERED: GLUCAGON 1 MG/VIAL IM PRN (13:35)
[2021-12-17] MEDS ORDERED: POLYETHYL GLY 3350 17 GM/DOSE PO PRN (14:00)
[2021-12-17] MEDS ORDERED: ACETAMINOPHEN 325 MG TABLET PO PRN (14:00)
[2021-12-17] MEDS ORDERED: LOPERAMIDE HCL 2 MG CAPSULE PO PRN (14:00)
[2021-12-17] MEDS ORDERED: NACHLORIDE 0.45% 1,000 ML IV SCH (14:00)
[2021-12-17] MEDS ORDERED: DIPHENHYDRAMINE 25 MG TAB/CAP PO PRN (14:00)
[2021-12-17 14:44] LABS: Absolute Lymphocytes (CBC) 2.9 K/uL (0.7-4.9); Hematocrit 40.4 % (36.0-45.0); Lymphocytes % 37.6 % (15.3-44.8); MPV 8.4 fL (7.6-11.3); RBC Red Blood Cell Count 4.33 M/uL (3.86-4.86)
[2021-12-17 14:49] LABS: Protime INR 1.03
--- NOTE | 2021-12-17 14:54 | RAD REPORT ---
EXAM DESCRIPTION: RAD - Chest Pa And Lat (2 Views) - 12/17/2021 2:41 pm CLINICAL HISTORY: abdominal pain COMPARISON: portable December 2019, two view July 2019 TECHNIQUE: Frontal and lateral views of the chest were obtained. FINDINGS: The lungs are clear. Interstitial pattern matches comparison. Heart size is normal and ce ntral vasculature is within normal limits. No pleural effusion or pneumothorax seen. No acute bony finding noted. No aortic abnormality. IMPRESSION: No acute cardiopulmonary process. No significant change from comparison study.
--- NOTE | 2021-12-17 14:58 | RAD REPORT ---
EXAM DESCRIPTION: CT - Abdomen Pelvis W Contrast - 12/17/2021 2:35 pm CLINICAL HISTORY: Abdomen pain, RUQ, RLQ COMPARISON: Abdomen Pelvis W Contrast dated 08/04/2019 TECHNIQUE: Biphasic, helical CT imaging of the abdomen and pelvis was performed following 100 ml non -ionic IV contrast. No oral contrast administered. All CT scans are performed using dose optimization technique as appropriate and may include automated exposure control or mA/KV adjustment according to patient size. FINDINGS: No suspicious findings in the lung bases. The liver, spleen, and pancreas show no suspicious findings. Gallbladder is absent. No abnormal bilia ry tree dilatation. Symmetric renal function is seen with no hydronephrosis or suspicious renal mass. No pyelonephritis o r acute parenchymal process. No gross abnormality of the contracted urinary bladder. No adrenal abnor malities. Uterus is absent. No ovarian abnormality. No stomach or small bowel dilatation. Fluid and air are present filling but not distending the stomac h. Moderate stool volume is present throughout the colon. Sigmoid colon is tortuous. Cecum is low lyi ng along the floor the pelvis. No free air, pneumatosis or focal inflammatory stranding. A few small periaortic and mesenteric lymph nodes are present 10 mm or less in size. Small amount of fluid is present in the cul de sac not outs bernardo of physiologic limits. No hernia, mass or bulky lymphadenopathy. No acute bone finding. Lumbosacral postsurgical changes are noted. IMPRESSION: Contrast enhanced CT abdomen and pelvis showing no acute or emergent finding. Minimal free fluid in the cul de sac is not outside of range of normal. A nonspecific enteritis is po ssible.
[2021-12-17 15:08] LABS: ALT/SGPT 21 U/L (12-78); AST/SGOT 14 U/L (15-37); Albumin 3.7 g/dL (3.4-5.0); Alkaline Phosphatase 97 U/L (45-117); Amylase 53 U/L (25-115); BUN Blood Urea Nitrogen 7 mg/dL (7-18); Bicarbonate 27 mmol/L (21-32); Bilirubin Direct 0.1 mg/dL (0-0.2); Bilirubin Total 0.6 mg/dL (0.2-1.0); Glucose Level 112 mg/dL (74-106); Phosphorus 2.7 mg/dL (2.5-4.9); Potassium 4.2 mmol/L (3.5-5.1); Protein, Total 7.7 g/dL (6.4-8.2); Sodium Level 140 mmol/L (136-145); Thyroid Stimulating Hormone 0.748 uIU/mL (0.360-3.740)
[2021-12-17] MEDS: HYDROMORPHONE HCL 1 MG/ML INJ IV PRN ×3 (15:26→22:34)
[2021-12-17] MEDS: ONDANSETRON 4 MG/2 ML VIAL IV PRN (15:27)
[2021-12-17] MEDS: INSULIN -REGULAR HUMAN 50 UNIT/0.5 ML ML SQ SCH ×2 (15:45→21:00)
[2021-12-17] MEDS: CEFOXITIN 1 GM in NA CHLORIDE 0.9% 50 ML IVPB SCH (17:57)
[2021-12-17 18:53] VITALS: BMI 35.9
[2021-12-17] MEDS: ONDANSETRON 4 MG (ODT) TAB PO PRN (18:55)
[2021-12-17] MEDS: D10W 125 ML IV PRN (19:03)
--- NOTE | 2021-12-17 19:06 | RAD REPORT ---
EXAM DESCRIPTION: US - Abdomen Exam Complete - 12/17/2021 6:44 pm CLINICAL HISTORY: Abdominal pain COMPARISON: December 17, 2021 CT FINDINGS: The liver has a normal echotexture. Cholecystectomy. The biliary tree is normal caliber. The pancreas is normal in size and echotexture The right kidney measures 10 centimeters with a normal echotexture. The left kidney measures 11 centimeters with a normal echotexture. The spleen measures 11 centimeters. The abdominal aorta and inferior vena cava appear unremarkable IMPRESSION: Unremarkable exam
[2021-12-17] MEDS: D5 0.45 NS 1,000 ML IV SCH (22:27)
[2021-12-18] MEDS: HYDROMORPHONE HCL 1 MG/ML INJ IV PRN ×2 (05:12→14:24)
[2021-12-18] MEDS: CEFOXITIN 1 GM in NA CHLORIDE 0.9% 50 ML IVPB SCH ×5 (05:12→17:08)
[2021-12-18 05:37] LABS: Absolute Lymphocytes (CBC) 2.5 K/uL (0.7-4.9); Hematocrit 37.8 % (36.0-45.0); Lymphocytes % 30.3 % (15.3-44.8); MPV 8.6 fL (7.6-11.3); RBC Red Blood Cell Count 4.06 M/uL (3.86-4.86)
[2021-12-18 05:52] LABS: BUN Blood Urea Nitrogen 6 mg/dL (7-18); Bicarbonate 28 mmol/L (21-32); Glucose Level 126 mg/dL (74-106); Magnesium 2.1 mg/dL (1.8-2.4); Potassium 4.2 mmol/L (3.5-5.1); Sodium Level 138 mmol/L (136-145)
[2021-12-18] MEDS: INSULIN -REGULAR HUMAN 50 UNIT/0.5 ML ML SQ SCH ×4 (07:30→21:00)
[2021-12-18] MEDS ORDERED: MAGNESIUM CITRATE 300 ML BOT PO SCH (08:00)
[2021-12-18] MEDS ORDERED: NA CHLORIDE 0.9% 1,000 ML ONE (08:19)
[2021-12-18] MEDS ORDERED: propofoL 200 MG/20 ML VIAL IV ONE ×2 (09:06→09:08)
[2021-12-18] MEDS ORDERED: LIDOCAINE 1% MPF 5 ML VIAL ONE (09:07)
[2021-12-18] MEDS ORDERED: FENTANYL CITR 100 MCG/2 ML ONE (09:27)
[2021-12-18] MEDS ORDERED: MIDAZOLAM HCL 2 MG/2 ML INJ ONE (09:27)
--- NOTE | 2021-12-18 09:45 | ENDO RPT ---
[address], [address] EGD PROCEDURE REPORT EXAM DATE: 12/18/2021 PATIENT NAME: Gracy Carter MR#: [id number] BIRTHDATE: 1970 ATTENDING: Marko Hilliard Dr STATUS: inpatient - [facility] SURTASS ANALYST: Domitila Amaya RN and Nori Lopez CST INDICATIONS: The patient is a 51 yr old Female here for an EGD due to right upper quadrant abdominal pain and nausea PROCEDURE PERFORMED: EGD with biopsy MEDICATIONS: Per Anesthesia. TOPICAL ANESTHETIC: none CONSENT: The patient understands the risks and benefits of the procedure and understands that these risks include, but are not limited to: sedation, allergic reaction, infection, perforation and/or bleeding. Alternative means of evaluation and treatment include, among others: physical exam, x-rays, and/or surgical intervention. The patient elects to proceed with this endoscopic procedure. DESCRIPTION OF PROCEDURE: During intra-op preparation period all mechanical medical equipment was checked for proper function. Hand hygiene and appropriate measures for infection prevention was taken. Procedure, possible complications, and alternatives including but not limited to the possibility of bleeding, perforation, tear, infection, sepsis, need for surgery, need for blood transfusion, and anesthesia related complications were explained to the patient. After the risks, benefits and alternatives of the procedure were thoroughly explained, Informed consent was verified, confirmed and timeout was successfully executed by the treatment team. The patient was placed in the left lateral position. The patient was anesthetized with topical anesthesia. Through the anesthetized oropharyngeal area, the scope was passed without any difficulty. The EG-[id number] ([id number]) endoscope was introduced through the mouth and advanced to the third portion of the duodenum. Retroflexed views revealed a small hiatal hernia. The gastroscope was then slowly withdrawn and removed. A small hiatal hernia was found Mild gastritis was found in the antrum. Multiple biopsies were obtained and sent to pathology. ADVERSE EVENTS: There were no complications. IMPRESSIONS: 1. Small hiatal hernia 2. Mild gastritis in the antrum, s/p biopsies RECOMMENDATIONS: 1. await biopsy results 2. acid suppression therapy REPEAT EXAM: Marko Hilliard Dr eSigned: Marko Hilliard Dr 12/18/2021 9:45 AM cc: Emil Bertrand M.D. CPT CODES: ICD9 CODES: PATIENT NAME: Gracy Carter MR#: [id number]
[2021-12-18] MEDS: D5 0.45 NS 1,000 ML IV SCH ×2 (10:20→23:29)
[2021-12-18] MEDS: ENOXAPARIN 40 MG/0.4 ML SQ SCH (10:45)
[2021-12-18] MEDS: METOCLOPRAMIDE 10 MG/2mL INJ IV SCH ×3 (10:45→17:08)
--- NOTE | 2021-12-18 11:05 | CON ---
Date of Consultation: 12/17/2021 Reason For Consultation: Abdominal pain. History Of Present Illness: The patient is a 51-year-old female, who has had a long history of right middle quadrant pain going into the pelvic region for several months, but recently it had became wor se. She tried to get an appointment with Dr. Hilliard to have GI workup and was told that he will not be able to until the end of December, so she went to Dr. Bertrand, who upon his examination found the patie nt to be extremely tender in the abdomen and admitted her for further workup and evaluation. She sta keyona that she has occasionally has nausea and vomiting. She does have constipation. No diarrhea. Bl ood in her stool. Occasional dysuria. No hematuria. No sore throat, runny nose, cough, headaches, or dizziness. No chest pain. Review of Systems: Otherwise unremarkable. No fever or chills. Past Medical History: Significant for diabetes. Past Surgical History: Hysterectomy laparoscopically and laparoscopic cholecystectomy by me 7 years ago. Allergies: NONE. Social History: The patient currently does not smoke or drink. Family History: Noncontributory. Physical Examination: Vital Signs: Stable. She is afebrile. General: She is awake, alert, and oriented x3. Head and neck: Cranial nerves 2 through 12 are grossly within normal limits. No neck masses. No JV D. Throat clear. Neck is supple. Chest: Clear. Heart: S1 and S2. Abdomen: Soft. Tenderness in the right middle quadrant and pelvic region. No rigidity or guarding. No rebound at this point. Extremity: Adequately perfused. Nontender. Neuro: Nonfocal. Laboratory Data: CT of the abdomen and pelvis is negative. Ultrasound of the abdomen is negative. CT does show, however, redundant colon with a large amount of stool present throughout the colon. La boratory data is reviewed. White count is normal. Chemistry reviewed, essentially unremarkable. Assessment: A 51-year-old female with abdominal pain, etiology unclear, could be due to adhesions, c onstipation. Recommendations: The patient does need a GI workup. The patient is scheduled for an EGD today and t he patient will also benefit from a colonoscopy. As far as the constipation is concern after the EGD , I would recommend Mag citrate or GoLYTELY to try to clean the patient out and then a colonoscopy. If the GI workup is negative, then the final option would be a diagnostic laparoscopy and she would n eed to be evaluated by Dr. Licona as well as she still has her ovaries to see if any intervention n eeds to be done with regard to that. We will follow this patient while in the hospital. RONAL/JO ANN Voice ID: [id number] Report ID: [id number]
--- NOTE | 2021-12-18 11:09 | EKG ---
Test Date: 2021-12-17 Test Time: 13:44:55 Operations General Agent: BARBY MEASUREMENT RESULTS: Intervals: Rate: 74 GA: 142 QRSD: 86 QT: 392 QTc: 435 Lindstrom: P: 69 GA: 142 QRS: 62 T: 52 INTERPRETIVE STATEMENTS: Normal sinus rhythm with sinus arrhythmia Normal ECG Compared to ECG 08/03/2019 17:14:29 No significant changes Electronically Signed On 12-18-21 11:07:42 BRISKET PULLER by Benedict Ballard
[2021-12-18 12:38] LABS: Urine Appearance CLEAR (Clear); Urine Bilirubin NEGATIVE (Negative); Urine Blood NEGATIVE (Negative); Urine Color YELLOW (Yellow); Urine Glucose NEGATIVE (Negative); Urine Protein NEGATIVE (Negative); Urine Specific Gravity >=1.030 (1.005-1.030); Urine Urobilinogen 0.2 mg/dL (0.2-1.0)
[2021-12-18 12:39] LABS: Urine Microscopic Reflex NO UMIC
[2021-12-18] MEDS ORDERED: MAGNESIUM CITRATE 300 ML BOT PO ONE (13:00)
[2021-12-18 13:07] LABS: UR MICROALBUMIN 0.6 mg/dL (< 1.9)
[2021-12-18] MEDS: GOLYTELY 4000 ML PO SCH (14:25)
--- NOTE | 2021-12-18 16:13 | CON ---
Date of Consultation: 12/18/2021 Reason For Consultation: Right upper quadrant and right lower quadrant pain, postoperative change in bowel habits, and hematochezia. History Of Present Illness: The patient is a 51-year-old female with history of diabetes, h ypertension, hysterectomy. The patient presented to the hospital with right upper quadrant and right lower quadrant pain and change in bowel habits, constipation, and increased hematochezia recently ov er the past 3 weeks. The patient states that the right upper quadrant pain is maximum 10/10, now 7/1 0, associated with nausea, but she reports the right lower quadrant pain is the worst and also 10/10, now approximately 7/10 as well. She reports she has had right lower quadrant pain since the age of 18, she is now 51. She notes 5 months ago that she changed her diet with start of Trulicity in an ef fort to lose weight and increase in her fiber content and she has noted a marked increase in the pain over the past 2-3 months as well as a 26-pound weight loss over the past [address] of th e abdomen and pelvis otherwise show possible nonspecific enteritis with a few small periaortic and pe ri-mesenteric lymph nodes. Ultrasound of the abdomen was negative. She has also noted change in bow el habits and increased constipation over the past 2 months with this change in diet with increased f iber. She denies prior history of tobacco use. She has had occasional hematochezia over the past 3 weeks for unclear reasons. The patient does not know why that is the case. Past Medical History: Significant for diabetes, hypertension, hysterectomy, laparoscopic cholecystec amina, lower back and L-spine surgery in 2012. Medications: At home include Trulicity and hypertension medicines as well. She says she does take h ypertension medicines, only Trulicity. Allergies: NKDA. Social History: She is , 3 children. No tobacco. Alcohol, wine occasionally. Family History: Father is alive. Paternal family side history of stomach cancer. Mother is alive w ith diabetes and end-stage liver disease with history of alcohol use. Review of Systems: The patient has right upper quadrant pain, right lower quadrant pain, nausea, change in bowel habits, constipation, hematochezia. She denies any melena, hematemesis, coffee-grounds emesis, chest pain, shortness of breath, seizure, syncope, lower extremity edema, muscle aches, joint aches, backaches, d epression, anxiety. Physical Examination: Vital Signs: The patient is 5 feet 4 inches, 209 pounds, BMI of 35.9 kg/m2. She has temperature 97. 8 degrees Fahrenheit, pulse 74, respirations 18, blood pressure 108/72. General: She is a mildly obese female, lying in bed, in some mild distress due to her pain in the ri t lower quadrant and right upper quadrant area. HEENT: Normocephalic, atraumatic. Pupils equal, round, and reactive to light. Anicteric. Orophary nx is clear. Neck: Supple. No masses. Respirations: Clear to auscultation bilaterally. Cardiac: Regular rate and rhythm. No gallops or rubs. Abdomen: Positive bowel sounds. Soft, nondistended. Pain in the right upper quadrant and right low er quadrant areas with guarding. No peritoneal or Hardy signs. No rebound. Extremities: No clubbing, cyanosis, or edema. 2+ pulses. Neuro: Alert and oriented x3. Grossly nonfocal. 5/5 motor. Sensation intact to light touch. Laboratory Data: The patient has a white count of 8.3, hemoglobin 12.8, hematocrit 37.8, MCV of 93.3 , and platelet count 215. Polys 62%, lymphocytes 30%, monocytes 6%, eosinophils 2%. The patient has a PT of 11.9, INR of 1.03, PTT of 32.7. The patient has sodium of 138, potassium 4.2, chloride 109, bicarb 28, BUN of 6, creatinine of 0.65, glucose 126, calcium 8.3, magnesium 2.1. UA was negative. Serology showed COVID-[address] of the abdomen and pelvis revealed possible nonsp ecific enteritis with diffuse small periaortic and mesenteric lymph nodes. Ultrasound was negative. Impression: 1.Right upper quadrant pain, maximum 10/10 pain, now down to 7/10, although it is best to get an EGD . 2.Right lower quadrant pain, maximum 10/10, now 7/10. Of note, the patient has had this since the a ge of 18. Five months ago, changed diet with start of Trulicity to treat diabetes. She has lost 26 pounds over the past 2 months with increased pain with increase in fiber diet, possibly consistent wi th diagnosis of Crohn disease, which will need to be investigated. 3.Change in bowel habits and constipation over the past 2 months. It was also could be consistent w ith new diagnosis of Crohn disease. 4.Hematochezia, occasionally over the past [address] revealing possible enteritis and a few small periaortic and mesenteric lymph nodes. U ltrasound of the abdomen was negative. 6.Weight loss of 26 pounds over the past 2 months. 7.History of diabetes, hypertension, hysterectomy, cholecystectomy, lumbar spine surgery in 2013. Recommendations: 1.Proceed with EGD, consider colonoscopy. 2.Check IBD panel, continue IV fluids with IV antibiotics. 3.Continue p.r.n. pain medications and antiemetics. 4.Serial H and H and transfuse p.r.n. STEVE/JO ANN Voice ID: [id number] Report ID: [id number]
[2021-12-18] MEDS: D10W 125 ML IV PRN (16:21)
[2021-12-18] MEDS: ONDANSETRON 4 MG/2 ML VIAL IV PRN (17:08)
[2021-12-18] MEDS: ONDANSETRON 4 MG (ODT) TAB PO PRN (22:55)
[2021-12-19] MEDS: CEFOXITIN 1 GM in NA CHLORIDE 0.9% 50 ML IVPB SCH ×3 (00:20→12:00)
[2021-12-19 05:08] LABS: Absolute Lymphocytes (CBC) 2.5 K/uL (0.7-4.9); Hematocrit 36.9 % (36.0-45.0); Lymphocytes % 31.5 % (15.3-44.8); MPV 8.1 fL (7.6-11.3)
[2021-12-19 05:24] LABS: BUN Blood Urea Nitrogen 3 mg/dL (7-18); Bicarbonate 26 mmol/L (21-32); Glucose Level 121 mg/dL (74-106); Magnesium 2.1 mg/dL (1.8-2.4); Sodium Level 141 mmol/L (136-145)
[2021-12-19] MEDS ORDERED: NA CHLORIDE 0.9% 1,000 ML ONE (07:27)
[2021-12-19] MEDS: INSULIN -REGULAR HUMAN 50 UNIT/0.5 ML ML SQ SCH ×2 (07:30→11:30)
--- NOTE | 2021-12-19 07:45 | P.PN ---
Subjective Date of Service: 12/18/21 Chief Complaint: SEVERE ABDOMEN PAIN. Subjective: No new changes SHE HAD EGD AND FOUND NOT MUCH. SHE ON CT SCAN HAS SEVERE CONSTIPATION. SHE WAS NOT AWARE OF IT. Physical Examination - Vital Signs Temperature: 97.7 F Blood Pressure: 142/78 Pulse: 78 Respirations: 18 Pulse Ox (%): 98 - Physical Exam General: Mild distress, Moderate distress HEENT: Atraumatic, PERRLA, EOMI Neck: Supple, JVD not distended Respiratory: Clear to auscultation bilaterally, Normal air movement Cardiovascular: Regular rate/rhythm, Normal S1 S2 Gastrointestinal: Normal bowel sounds, No tenderness Musculoskeletal: No tenderness Integumentary: No rashes Neurological: Normal speech, Normal tone, Normal affect Lymphatics: No axilla or inguinal lymphadenopathy - Studies Laboratory Data (last 24 hrs) 12/19/21 04:47: Sodium 141, Potassium 4.0, BUN 3 L, Creatinine 0.67, Glucose 121 H, Magnesium 2.1 12/19/21 04:47: WBC 7.80, Hgb 12.7, Hct 36.9, Plt Count 216 Microbiology Data (last 24 hrs): 12/17/21 15:22 Blood - Blood Anaerobic Blood Culture - Final Medications List Reviewed: Yes Assessment And Plan - Current Problems (Diagnosis) (1) Diffuse abdominal pain Current Visit: Yes Status: Acute Plan: WILL NEED MAG CIT OR ENEMA. SHE IS GETTING READY FOR COLONOSCOPY IN AM AND THAT WILL PREP HER WELL. (2) Diabetes Current Visit: Yes Status: Chronic Plan: LOT BETTER AFTER TRULICITY. Qualifiers: Diabetes mellitus type: type 2
--- NOTE | 2021-12-19 08:02 | P.DS ---
Admission Date: 12/17/21 Discharge Date: 12/19/21 Disposition: ROUTINE DISCHARGE Discharge Condition: FAIR Reason for Admission: SEVERE ABDOMEN PAIN. - Problems (1) Diffuse abdominal pain Current Visit: Yes Status: Acute (2) Diabetes Current Visit: Yes Status: Chronic Qualifiers: Diabetes mellitus type: type 2 Hospital Course: HALI HAD SEVERE ABDOMEN PAIN WITH CONSTIPATION. NO OTHER MAJOR ETIOLOGY WAS FOUND. I EXPECT SAME FROM COLONOSCOPY. SHE IS QUITE PAINFREE AFTER COLON CLEARED FOR SCOPE SHE WILL FU IN OFFICE IN ONE WEEK Vital Signs/Physical Exam: Temp Pulse Resp BP Pulse Ox 97.7 F 78 18 142/78 H 98 12/19/21 07:45 12/19/21 07:45 12/19/21 07:45 12/19/21 07:45 12/19/21 07:45 Laboratory Data at Discharge: WBC 7.80 K/uL (4.3-10.9) 12/19/21 04:47 Hgb 12.7 g/dL (12.0-15.0) 12/19/21 04:47 Hct 36.9 % (36.0-45.0) 12/19/21 04:47 Plt Count 216 K/uL (152-406) 12/19/21 04:47 PT 11.9 SECONDS (9.5-12.5) 12/17/21 14:07 INR 1.03 12/17/21 14:07 APTT 32.7 SECONDS (24.3-36.9) 12/17/21 14:07 Sodium 141 mmol/L (136-145) 12/19/21 04:47 Potassium 4.0 mmol/L (3.5-5.1) 12/19/21 04:47 BUN 3 mg/dL (7-18) L 12/19/21 04:47 Creatinine 0.67 mg/dL (0.55-1.3) 12/19/21 04:47 Glucose 121 mg/dL (74-106) H 12/19/21 04:47 Phosphorus 2.7 mg/dL (2.5-4.9) 12/17/21 14:07 Magnesium 2.1 mg/dL (1.8-2.4) 12/19/21 04:47 Total Bilirubin 0.6 mg/dL (0.2-1.0) 12/17/21 14:07 AST 14 U/L (15-37) L 12/17/21 14:07 ALT 21 U/L (12-78) 12/17/21 14:07 Alkaline Phosphatase 97 U/L (45-117) 12/17/21 14:07 Amylase 53 U/L (25-115) 12/17/21 14:07 Lipase 122 U/L (73-393) 12/17/21 09:55 Home Medications: Losartan Potassium 50 mg PO DAILY 04/24/15 Insulin Glargine,Hum.rec.anlog [Scotty Jerez] 15 unit SQ DAILY 06/16/16 Aspirin [Christo Chewable Aspirin] 81 mg PO DAILY 12/17/21 Dulaglutide [Trulicity] 3 mg SQ EVERY 7TH DAY 12/17/21 Famotidine [Pepcid] 20 mg PO DAILY 12/17/21
[2021-12-19] MEDS: ENOXAPARIN 40 MG/0.4 ML SQ SCH (08:45)
[2021-12-19] MEDS ORDERED: propofoL 200 MG/20 ML VIAL IV ONE ×2 (08:49)
[2021-12-19] MEDS ORDERED: LIDOCAINE 1% MPF 5 ML VIAL ONE (08:49)
[2021-12-19] MEDS ORDERED: MIDAZOLAM HCL 2 MG/2 ML INJ ONE (08:49)
[2021-12-19 09:27] VITALS: O2SAT 100
--- NOTE | 2021-12-19 09:51 | ENDO RPT ---
[address], [address] COLONOSCOPY PROCEDURE REPORT EXAM DATE: 12/19/2021 PATIENT NAME: Gracy Carter MR #: [id number] BIRTHDATE: 1970 ATTENDING: Marko Hilliard Dr STATUS: inpatient - [facility] ORTHOTIC FINISH GRINDING TECHNICIAN: Domitila Amaya RN INDICATIONS: The patient is a 51 yr old Female here for a colonoscopy due to RLQ abdominal pain, hematochezia, change in bowel habits, and constipation PROCEDURE PERFORMED: Colonoscopy with biopsy MEDICATIONS: Per Anesthesia. ESTIMATED BLOOD LOSS: None CONSENT: The patient understands the risks and benefits of the procedure and understands that these risks include, but are not limited to: sedation, allergic reaction, infection, perforation and/or bleeding. Alternative means of evaluation and treatment include, among others: physical exam, x-rays, and/or surgical intervention. The patient elects to proceed with this endoscopic procedure. DESCRIPTION OF PROCEDURE: During intra-op preparation period all mechanical medical equipment was checked for proper function. Hand hygiene and appropriate measures for infection prevention was taken. Procedure, possible complications, alternatives including, but not limited to possibility of bleeding, perforation, tear, infection, sepsis, need for surgery, need for blood transfusion, were explained to the patient. After the risks, benefits and alternatives of the procedure were thoroughly explained, Informed consent was verified, confirmed and timeout was successfully executed by the treatment team. The patient was placed in the left lateral position. A digital rectal exam was performed and revealed no abnormalities of the rectum. After appropriate level of anesthesia, the scope was passed. The EC-[id number] ([id number]) endoscope was introduced through the anus and advanced to the terminal ileum which was intubated for a short distance. The quality of the prep was good. The instrument was then slowly withdrawn as the colon was fully examined. Scope withdrawal time was 7 minutes. COLON FINDINGS: Diverticula was found throughout the entire examined colon. The opening was medium sized. Random biopsies of the terminal ileum / right colon / left colon / rectum obtained with suspicion of Crohn's disease. Small internal hemorrhoids were found. Retroflexed views revealed small hemorrhoids. The scope was then completely withdrawn from the patient and the procedure terminated. ADVERSE EVENTS: There were no complications. IMPRESSIONS: 1. Diverticula throughout the entire examined colon 2. Random biopsies of the terminal ileum / right colon / left colon / rectum obtained with suspicion of Crohn's disease 3. Small internal hemorrhoids 4. Intubation to terminal ileum RECOMMENDATIONS: 1. await biopsy results 2. Small Bowel Follow Through 3. pillcam / capsule endoscopy RECALL: Return in 10 year(s) for Colonoscopy. Marko Hilliard Dr eSigned: Marko Hilliard Dr 12/19/2021 9:51 AM cc: Emil Bertrand CPT CODES: ICD9 CODES: PATIENT NAME: Gracy Carter MR#: [id number]
--- NOTE | 2021-12-19 09:54 | ENDO RPT ---
[address], [address] COLONOSCOPY PROCEDURE REPORT EXAM DATE: 12/19/2021 PATIENT NAME: Gracy Carter MR #: [id number] BIRTHDATE: 1970 ATTENDING: Marko Hilliard Dr STATUS: inpatient - [facility] BEAD SUPERVISOR: Domitila Amaya RN INDICATIONS: The patient is a 51 yr old Female here for a colonoscopy due to RLQ abdominal pain, hematochezia, change in bowel habits, and constipation PROCEDURE PERFORMED: Colonoscopy with biopsy MEDICATIONS: Per Anesthesia. ESTIMATED BLOOD LOSS: None CONSENT: The patient understands the risks and benefits of the procedure and understands that these risks include, but are not limited to: sedation, allergic reaction, infection, perforation and/or bleeding. Alternative means of evaluation and treatment include, among others: physical exam, x-rays, and/or surgical intervention. The patient elects to proceed with this endoscopic procedure. DESCRIPTION OF PROCEDURE: During intra-op preparation period all mechanical medical equipment was checked for proper function. Hand hygiene and appropriate measures for infection prevention was taken. Procedure, possible complications, alternatives including, but not limited to possibility of bleeding, perforation, tear, infection, sepsis, need for surgery, need for blood transfusion, were explained to the patient. After the risks, benefits and alternatives of the procedure were thoroughly explained, Informed consent was verified, confirmed and timeout was successfully executed by the treatment team. The patient was placed in the left lateral position. A digital rectal exam was performed and revealed no abnormalities of the rectum. After appropriate level of anesthesia, the scope was passed. The EC-[id number] ([id number]) endoscope was introduced through the anus and advanced to the terminal ileum which was intubated for a short distance. The quality of the prep was good. The instrument was then slowly withdrawn as the colon was fully examined. Scope withdrawal time was 7 minutes. COLON FINDINGS: Few diverticula were found scattered throughout the entire examined colon. The opening was medium sized. Random biopsies of the terminal ileum / right colon / left colon / rectum obtained with suspicion of Crohn's disease. Small internal hemorrhoids were found. Retroflexed views revealed small hemorrhoids. The scope was then completely withdrawn from the patient and the procedure terminated. ADVERSE EVENTS: There were no complications. IMPRESSIONS: 1. Few diverticula scattered throughout the entire examined colon 2. Random biopsies of the terminal ileum / right colon / left colon / rectum obtained with suspicion of Crohn's disease 3. Small internal hemorrhoids 4. Intubation to terminal ileum RECOMMENDATIONS: 1. await biopsy results 2. Small Bowel Follow Through 3. pillcam / capsule endoscopy RECALL: Return in 10 year(s) for Colonoscopy. Marko Hilliard Dr eSigned: Marko Hilliard Dr 12/19/2021 9:54 AM Revised: 12/19/2021 9:54 AM cc: Emil Bertrand CPT CODES: ICD9 CODES: PATIENT NAME: Gracy Carter MR#: [id number]
[2021-12-19 10:49] VITALS: BP 118/72; TEMP 97.5
[2021-12-19] MEDS: GOLYTELY 4000 ML PO SCH (14:00)
--- NOTE | 2021-12-19 14:43 | RAD REPORT ---
EXAM DESCRIPTION: RAD - Small Bowel Series - 12/19/2021 2:00 pm CLINICAL HISTORY: suspicion of Crohn's disease, abdominal pain, diverticulitis history, constipation , prior cholecystectomy and hysterectomy. COMPARISON: Abdomen Exam Complete dated 12/17/2021 FINDINGS: Air is present in a nondilated stomach. Air is present filling but not dilating multiple s mall bowel loops and the colon. No obstruction or free air. No suspicious calcifications. Gastric size and mucosal fold pattern are normal. No delay in transit of contrast into the small wendi l. Small bowel is normal in diameter with no mucosal fold thickening. No intrinsic or extrinsic mass identifiable. Terminal ileum has normal appearance. Transit time to the colon is 2 hours. IMPRESSION: No mass, focal narrowing or diffuse mucosal process seen in the small bowel. Excavation Laborer film showed multiple air-filled nondilated small bowel loops. Transit time to the colon was 2 hours. No abnormality of the terminal ileum seen.
== END 2021-12-19 15:05 | disposition home or self-care (01) ==
LOC: LAB 09:03 → EDSTATUS 12:38 → 2ND 12:47
PROVIDERS: ADMIT Internal Medicine; ATTEND Internal Medicine
PROC: 0DB78ZX Excision of Stomach, Pylorus, Via Natural or Artificial Opening Endoscopic, Diagnostic (ICD-10-PCS; 2021-12-18)
PROC: 0DBP8ZX Excision of Rectum, Via Natural or Artificial Opening Endoscopic, Diagnostic (ICD-10-PCS; 2021-12-19)
PROC: 0DBF8ZX Excision of Right Large Intestine, Via Natural or Artificial Opening Endoscopic, Diagnostic (ICD-10-PCS; 2021-12-19)
PROC: 0DBG8ZX Excision of Left Large Intestine, Via Natural or Artificial Opening Endoscopic, Diagnostic (ICD-10-PCS; 2021-12-19)
PROC: 0DBB8ZX Excision of Ileum, Via Natural or Artificial Opening Endoscopic, Diagnostic (ICD-10-PCS; principal; 2021-12-19 08:00)
DX: K59.00 Constipation, unspecified (principal); K29.50 Unspecified chronic gastritis without bleeding; K57.90 Diverticulosis of intestine, part unspecified, without perforation or abscess without bleeding; K44.9 Diaphragmatic hernia without obstruction or gangrene; K64.8 Other hemorrhoids; K92.1 Melena; E11.9 Type 2 diabetes mellitus without complications; I10 Essential (primary) hypertension; E04.1 Nontoxic single thyroid nodule; J45.20 Mild intermittent asthma, uncomplicated; M54.9 Dorsalgia, unspecified; E66.9 Obesity, unspecified; Z68.35 Body mass index [BMI] 35.0-35.9, adult; Z20.822 Contact with and (suspected) exposure to COVID-19; Z79.82 Long term (current) use of aspirin; Z79.4 Long term (current) use of insulin; Z79.899 Other long term (current) drug therapy; Z90.710 Acquired absence of both cervix and uterus; Z90.49 Acquired absence of other specified parts of digestive tract; Z80.0 Family history of malignant neoplasm of digestive organs; Z83.3 Family history of diabetes mellitus
CPT/HCPCS: 45380; 43239; 93005; 87040 ×2; 85025 ×4; 80048 ×4; 36415 ×2; 82150 ×2; 83735 ×4; 88312; 84100 ×2; 85610 ×2; 82947 ×10; 80076 ×2; 88305 ×2; 85730 ×2; 84443 ×2; 81003 ×2; 83036; 82570; 82607 ×2; 83690; 82306 ×2; 86021 ×2; 82043; 74177; 74250; 71046; 76700; 86036; 86671; U0003; Q9967; J2704 ×3; J2765 ×3; J1650; J2250 ×2; J3010; J1170 ×5; G0378 ×5; J7799 ×2; J7030 ×2; J0694 ×8; J2405 ×2; G0379; J1610

== ENCOUNTER 2023-05-13 11:46 | Emergency (ER) | payer BC ==
--- OUTSIDE RECORDS SUMMARY | 2023-05-13 11:49 | XMS REPORT | Continuity of Care Document ---
:1970 Author Organization [facility] t Address [address] [facility] [place] [address] Care Team Providers Name Role Phone Estelle Curtis Attending Clinician Pob1, Acute Care Clinic Attending Clinician Unavailable Unknown, Attending Attending Clinician Unavailable UNKNOWN, ATTENDING Attending Clinician Unavailable Payers Payer Name Policy Type Policy Number Effective Date Expiration Date S ource Problems Condition Condition Condition Status Onset Resolution Last Treating Co mments Source Name Details Category Date Date Treatment Clinician Date No known No known Disease Unive rs active active ity of problems problems [facility] Allergies, Adverse Reactions, Alerts Allergy Allergy Status Severity Reaction(s) Onset Inactive Treating Comm ents Source Name Type Date Date Clinician NO KNOWN Drug Active Univers ALLERGIE Class ity of S [facility] Social History Social Habit Start Date Stop Date Quantity Comments Source History [facility] [place] Alcohol Std Drinks Medica l Branch History Formerly [facility] o [facility] [place] Alcohol Binge Medical Bra [facility] Sex Assigned At [facility] Medical Branch Alcohol intake 2020-01-11 2020-01-11 [facility] 00:00:00 00:00:00 Medical Branch History SDPR 2020-01-11 2020-01-11 1 [employer] [facility] [place] Alcohol Frequency 00:00:00 00:00:00 Medical Branch Smoking Status Start Date Stop Date Source Never smoker [facility] Branch Medications Ordered Filled Start Stop Current Ordering Indication Dosage Frequency Signature Comments Components Source Medication Medication Date Date Medication? Clinician (SIG) Name Name losartan 50 2019- Yes 50mg Take 50 mg Univers mg tablet 3-25 by mouth ity of 20:02: daily. [address] Omeprazole 2019-0 Yes Take by Univ ers 20 mg 3-25 mouth. ity of tablet 20:02: [address] insulin 0 Yes 30U inject 30 Unive rs glargine,hu 3-25 Units ity of m.rec.anlog 20:02: [place]TOUJEO MAX 40 skin. Medical [address] [facility] losartan 50 2019-0 Yes 50mg Take 50 mg Univers mg tablet 3-25 by mouth ity of 20:02: daily. [address] Omeprazole Yes Take by Univ ers 20 mg 3-25 mouth. ity of tablet 20:02: [address] insulin Yes 30U inject 30 Unive rs glargine,hu 3-25 Units ity of m.rec.anlog 20:02: [place] (TOUJEO MAX 40 skin. Medical [address] [facility]) Vital Signs Vital Name Observation Time Observation Value Comments Source Systolic blood 2020-01-11 19:51:00 121 [facility]Hg[facility] Diastolic blood 2020-01-11 19:51:00 84 mm[facility]Hg[facility] Heart rate 2020-01-11 19:41:00 103 /min [facility] Body temperature 2020-01-11 19:41:00 38.78 Marina [facility] Respiratory rate 2020-01-11 19:41:00 19 /min [facility] Oxygen saturation in 2020-01-11 19:41:00 98 /min [facility] Arterial blood by [facility] Pulse oximetry Branch Systolic blood 2020-01-11 19:51:00 121 mm[Hg] Univer sity of pressure [facility] Diastolic blood 2020-01-11 19:51:00 84 mm[Hg] [facility] Heart rate 2020-01-11 19:41:00 103 /min [facility] Body temperature 2020-01-11 19:41:00 38.78 Marina [facility] Respiratory rate 2020-01-11 19:41:00 19 /min [facility] Oxygen saturation in 2020-01-11 19:41:00 98 /min [facility] Arterial blood by [facility] Pulse oximetry Branch Procedures Procedure Date / Time Performing Clinician Source Performed LAB ONLY CORONAVIRUS 2020-01-11 19:46:00 Estelle Barnhart [facility] COVID-19 PCR L [facility] POCT FLU A AND B 2020-01-11 00:00:00 Estelle Barnhart [facility] (MOLECULAR) [facility] Encounters Start End Encounter Admission Attending Care Care Encounter Source Date/Time Date/Time Type Type Clinicians Facility Department ID 2020-01-13 2020-01-13 Telephone BERNA Barnhart [id number] Univers 00:00:00 00:00:00 Estelle MCCAULEY [id number] i ty [facility] [id number] Zaid as [id number] [facility] 019 Branch 2020-01-13 2020-01-13 Telephone BRENA Barnhart [id number] 00:00:00 00:00:00 Estelle MCCAULEY [id number] [facility] [id number] 2020-01-11 2020-01-11 Urgent Pob1, Acute Care Clinic [facility] [id number] Univers 14:29:54 16:07:16 Care Unknown, Attending Health [id number] ity Estelle Alvarez [place] [id number] [place] Professio [id number] [place] dical [facility] [address] 2020-01-11 2020-01-11 Urgent Pob1, Acute [facility] [id number] 14:29:54 16:07:16 Care Care Clinic Health [id number] [place] [id number] Professio [id number] nal [facility] Office [address] 2020-01-11 2020-01-11 Outpatient R UNKNOWN, [facility] [id number] Univers 15:00:00 15:00:[address] [facility] Results Test Description Test Time Test Comments Results Result Comments Source LAB ONLY CORONAVIRUS COVID-19 PCR [facility] 2020-01-12 20:54:00 Test Item Value Reference Range Interpretation Comme nts SARS-CoV-2 (test code = Positive Not Detected A [id number]) OCTAVIO (test code = OCTAVIO) Not Detected: A negative result does not preclude COVID-19 infection and should not be used as the sole basis for treatment or other patient management decisions. Negative results must be combined with clinical observations, patient history, and epidemiological information. Presumptive Positive: Specimen will be sent to [facility] for confirmation testing. Inconclusive: Specimen will be sent to [facility] for additional testing. Invalid: Please collect a new specimen for repeat patient testing. Disclaimer:This test was developed and its performance characteristics determined by [facility]. It has not been cleared [...] testing. Lab Interpretation (test code = Abnormal 39119-2) [facility]2020-01-11 20:15:00 Test Item Value Reference Range Interpretation Comments POCT INFLUENZA A (test code = negative Negative - Negative 3840) POCT INFLUENZA B (test code = negative Negative - Negative 3841) [facility]
[2023-05-13] MEDS ORDERED: NA CHLORIDE 0.9% 1,000 ML ONE (12:13)
[2023-05-13] MEDS ORDERED: FAMOTIDINE 20 MG/2 ML VIAL IV ONE (12:13)
[2023-05-13] MEDS ORDERED: MORPHINE 4 MG/ML SYR ONE (12:13)
[2023-05-13] MEDS ORDERED: ONDANSETRON 4 MG/2 ML VIAL ONE (12:13)
[2023-05-13 12:23] LABS: Absolute Lymphocytes (CBC) 3.3 K/uL (0.7-4.9); Hematocrit 43.7 % (36.0-45.0); Lymphocytes % 35.6 % (15.3-44.8); MCV 94.1 fL (80-100); MPV 8.8 fL (7.6-11.3); RBC Red Blood Cell Count 4.65 M/uL (3.86-4.86)
[2023-05-13 12:38] LABS: Albumin 3.9 g/dL (3.4-5.0); Bilirubin Total 0.5 mg/dL (0.2-1.0); Potassium 4.2 mEq/L (3.5-5.1); Protein, Total 7.8 g/dL (6.4-8.2)
--- NOTE | 2023-05-13 13:18 | RAD REPORT ---
EXAM DESCRIPTION: CTAbdomen Pelvis W Contrast - 05/13/2023 1:06 pm CLINICAL HISTORY: Abdominal pain. ABD PAIN COMPARISON: Abdomen Pelvis W Contrast dated 12/17/2021; Abdomen Pelvis W Contrast dated 08/04/2019 ; Abdomen Pelvis W Contrast dated 08/10/2017 TECHNIQUE: Biphasic CT imaging of the abdomen and pelvis was performed with 100 ml non-ionic IV cont rast. All CT scans are performed using dose optimization technique as appropriate and may include automated exposure control or mA/KV adjustment according to patient size. FINDINGS: The lung bases are clear.Cholecystectomy. The liver, spleen, pancreas, adrenal glands and kidneys are within normal limits. No bowel obstruction, free air, free fluid or abscess. There is moderate stool retention rectosigmoid . The appendix is normal. No evidence of significant lymphadenopathy. Slight thickened enhancing ramila earance to the urinary bladder. Hardware is in place lower lumbar spine. IMPRESSION: No acute intra-abdominal or pelvic finding. Questionable cystitis. Suggest correlation with urinalysis.
[2023-05-13] MEDS ORDERED: levoFLOXacin 750 MG TAB ONE (14:17)
[2023-05-13] MEDS ORDERED: NA CHLORIDE 0.9% 50 ML ONE (14:17)
[2023-05-13] MEDS ORDERED: CEFTRIAXONE 1000 MG/VIAL ONE (14:17)
[2023-05-13 14:31] LABS: Specific Gravity > 1.030 (1.005-1.030); Urine Bilirubin NEGATIVE (Negative); Urine Blood Negative (Negative); Urine Clarity Clear (Clear); Urine Color Colorless (Yellow); Urine Glucose NEGATIVE (Negative); Urine Protein NEGATIVE (Negative); Urine Urobilinogen Normal (Normal)
--- NOTE | 2023-05-13 14:51 | EDPHYS ---
Physician Documentation [facility] Name: Gracy Carter Age: 52 yrs Sex: Female : 1970 Arrival Date: 05/13/2023 Time: 11:46 Bed 17 Private MD: Chuy Egan ED Physician Eric Epps HPI: 05/13 14:40 This 52 yrs old Female presents to ER via Ambulatory with complaints of belkys Abdominal Pain - low. 14:40 The patient presents with abdominal pain in the lower abdomen, abdominal distention in belkys the lower abdomen. Onset: The symptoms/episode began/occurred 2 day(s) ago. The symptoms do not radiate. Associated signs and symptoms: Pertinent positives: constipation. The symptoms are described as constant, crampy. Modifying factors: The symptoms are alleviated by nothing, the symptoms are aggravated by movement. Severity of pain: At its worst the pain was moderate today. The patient has not experienced similar symptoms in the past. DRUM TENDER: 15:24 LMP N/A - Irregular menses eh3 Historical: - Allergies: 11:56 No Known Allergies; aa5 - PMHx: 11:55 Diabetes - IDDM; Hypertension; aa5 11:56 Diverticulitis; aa5 - PSHx: 11:56 Cholecystectomy; Hysterectomy; aa5 - Immunization history:: Adult Immunizations up to date. - Social history:: Smoking status: Patient denies any tobacco usage or history of. - Family history:: not pertinent. ROS: 14:42 Constitutional: Negative for fever, chills, and weight loss, Eyes: Negative for injury, belkys pain, redness, and discharge, ENT: Negative for injury, pain, and discharge, Neck: Negative for injury, pain, and swelling, Cardiovascular: Negative for chest pain, palpitations, and edema, Respiratory: Negative for shortness of breath, cough, wheezing, and pleuritic chest pain, Back: Negative for injury and pain, : Negative for injury, bleeding, discharge, and swelling, MS/Extremity: Negative for injury and deformity, Skin: Negative for injury, rash, and discoloration, Neuro: Negative for headache, weakness, numbness, tingling, and seizure, Psych: Negative for depression, anxiety, suicide ideation, homicidal ideation, and hallucinations, Allergy/Immunology: Negative for hives, rash, and allergies, Endocrine: Negative for neck swelling, polydipsia, polyuria, polyphagia, and marked weight changes, Hematologic/Lymphatic: Negative for swollen nodes, abnormal bleeding, and unusual bruising. 14:42 Abdomen/GI: Positive for abdominal pain, of the right lower quadrant and left lower quadrant. Exam: 14:42 Constitutional: This is a well developed, well nourished patient who is awake, alert, belkys and in no acute distress. Head/Face: Normocephalic, atraumatic. Eyes: Pupils equal round and reactive to light, extra-ocular motions intact. Lids and lashes normal. Conjunctiva and sclera are non-icteric and not injected. Cornea within normal limits. Periorbital areas with no swelling, redness, or edema. ENT: Nares patent. No nasal discharge, no septal abnormalities noted. Tympanic membranes are normal and external auditory canals are clear. Oropharynx with no redness, swelling, or masses, exudates, or evidence of obstruction, uvula midline. Mucous membranes moist. Neck: Trachea midline, no thyromegaly or masses palpated, and no cervical lymphadenopathy. Supple, full range of motion without nuchal rigidity, or vertebral point tenderness. No Meningismus. Chest/axilla: Normal chest wall appearance and motion. Nontender with no deformity. No lesions are appreciated. Cardiovascular: Regular rate and rhythm with a normal S1 and S2. No gallops, murmurs, or rubs. Normal PMI, no JVD. No pulse deficits. Respiratory: Lungs have equal breath sounds bilaterally, clear to auscultation and percussion. No rales, rhonchi or wheezes noted. No increased work of breathing, no retractions or nasal flaring. Back: No spinal tenderness. No costovertebral tenderness. Full range of motion. Skin: Warm, dry with normal turgor. Normal color with no rashes, no lesions, and no evidence of cellulitis. MS/ Extremity: Pulses equal, no cyanosis. Neurovascular intact. Full, normal range of motion. Neuro: Awake and alert, GCS 15, oriented to person, place, time, and situation. Cranial nerves II-XII grossly intact. Motor strength 5/5 in all extremities. Sensory grossly intact. Cerebellar exam normal. Normal gait. Psych: Awake, alert, with orientation to person, place and time. Behavior, mood, and affect are within normal limits. 14:42 Abdomen/GI: Inspection: abdomen appears normal, Bowel sounds: normal, Palpation: moderate abdominal tenderness, in the right lower quadrant and left lower quadrant, Liver: no appreciated palpable abnormalities, Hernia: not appreciated. Vital Signs: 11:55 BP 161 / 100; Pulse 80; Resp 18 S; Temp 97.9(TE); Pulse Ox 100% on R/A; Weight 90.26 kg aa5 (R); Height 5 ft. 4 in. (R); Pain 7/10; 12:25 BP 145 / 85; Pulse 73; Resp 18; Pulse Ox 100% on R/A; eh3 13:00 BP 152 / 97; Pulse 74; Resp 18; Pulse Ox 100% on R/A; eh3 14:00 BP 143 / 83; Pulse 76; Resp 16; Pulse Ox 100% on R/A; eh3 15:00 BP 159 / 98; Pulse 77; Resp 17; Pulse Ox 100% ; eh3 11:55 Body Mass Index 34.16 (90.26 kg, 162.56 cm) aa5 11:55 Pain Scale: Adult aa5 MDM: 11:55 Patient medically screened. [facility] 14:44 Differential diagnosis: bowel obstruction, diverticulitis, Mesenteric ischemia or belkys infarction, non-specific abd pain, pancreatitis, Peptic Ulcer Disease, Pyelonephritis, Ureterolithiasis, urinary tract infection. Data reviewed: vital signs, nurses notes, lab test result(s), radiologic studies, CT scan. Consideration of Admission/Observation Escalation of care including admission/observation considered. I considered the following discharge prescriptions or medication management in the emergency department Medications were administered in the Emergency Department. See MAR. Independent interpretation of the following test(s) in the Emergency Department CT Scan: My interpretation is CT ABD PELVIS. Test considered but Not performed: Ultrasound NO ABD USG. Care significantly affected by the following chronic conditions: Diabetes, Hypertension, DIVERTICULITIS. Counseling: I had a detailed discussion with the patient and/or guardian regarding: the historical points, exam findings, and any diagnostic results supporting the discharge/admit diagnosis, lab results, radiology results, the need for outpatient follow up, for definitive care, a family practitioner. 05/13 11:56 Order name: CBC with Diff; Complete Time: 13:51 belkys 05/13 11:56 Order name: CMP; Complete Time: 13:51 [facility] 05/13 11:56 Order name: Lipase; Complete Time: 13:51 [facility] 05/13 11:56 Order name: Urinalysis w/ reflexes; Complete Time: 14:39 [facility] 05/13 11:56 Order name: CT Abd/Pelvis - IV Contrast Only; Complete Time: 13:51 [facility] 05/13 11:56 Order name: IV Saline Lock; Complete Time: 12:11 [facility] 05/13 11:56 Order name: Labs collected and sent; Complete Time: 12:11 [facility] 05/13 13:52 Order name: Misc. Order: PLEASE GET UA; Complete Time: 14:26 [facility] Administered Medications: 12:20 Drug: NS 0.9% IV 1000 ml Route: IV; Rate: 1 bolus; Site: right antecubital; eh3 14:00 Follow up: IV Status: Completed infusion; IV Intake: 1000ml eh3 12:20 Drug: Famotidine IVP 20 mg Route: IVP; Site: right antecubital; eh3 13:21 Follow up: Response: No adverse reaction eh3 12:20 Drug: Ondansetron IVP 4 mg Route: IVP; Site: right antecubital; eh3 13:21 Follow up: Response: No adverse reaction eh3 12:20 Drug: morphine IVP or IV 4 mg Route: IVP; Infused Over: 4 mins; Site: right antecubital;eh3 13:21 Follow up: Response: No adverse reaction eh3 14:45 Drug: Rocephin IV 1 grams Route: IV; Rate: per protocol; Site: right antecubital; eh3 15:14 Follow up: Response: No adverse reaction; IV Status: Completed infusion; IV Intake: [id number] 14:45 Drug: LevOfloxacin PO 750 mg Route: PO; eh3 15:14 Follow up: Response: No adverse reaction eh3 14:45 Drug: Lactulose PO 30 grams Volume: 45 ml; Route: PO; eh3 15:14 Follow up: Response: No adverse reaction eh3 Disposition Summary: 05/13/23 14:51 Discharge Ordered Location: Home belkys Problem: new belkys Symptoms: have improved belkys Condition: Stable belkys Diagnosis - Abdominal tenderness belkys - Constipation belkys - Acute cystitis belkys Followup: belkys - With: Chuy Egan MD - When: 2 - 3 days - Reason: Recheck today's complaints, Continuance of care, Re-evaluation by your physician Followup: [facility] - With: Morenita Stevens MD - When: 2 - 3 days - Reason: Recheck today's complaints, Continuance of care, Re-evaluation by your physician Discharge Instructions: - Discharge Summary Sheet belkys - Abdominal Pain, Adult belkys - Constipation, Adult belkys - Constipation, Adult, [id number] [facility] - Urinary Tract Infection, Adult, Bagv-ah-[id number] belkys - Abdominal Pain, Adult, Pimf-[id number]-Uclc [facility] Forms: - Medication Reconciliation Form [facility] - Thank You Letter [facility] - Antibiotic Education [facility] - Prescription Opioid Use [facility] - Patient Portal Instructions [facility] Prescriptions: - Colace 100 mg Oral Tablet - take 1 tablet by ORAL route every 12 hours; 14 tablet; Refills: 0, Product [facility] Selection Permitted - Zofran 4 mg Oral Tablet - take 1 tablet by ORAL route every 12 hours As needed; 20 tablet; Refills: 0, [facility] Product Selection Permitted - Cipro 500 mg Oral Tablet - take 1 tablet by ORAL route every 12 hours for 7 days; 14 tablet; Refills: 0, [facility] Product Selection Permitted - dicyclomine 10 mg/5 mL Oral Solution - take 10 milliliters by ORAL route 4 times per day; 160 milliliter; Refills: 0, [facility] Product Selection Permitted Signatures: Dispatcher [employer] Eric Eaton MD MD cha Calderon, Audri, RN RN aa5 Niya Phoenix RN RN eh3
--- NOTE | 2023-05-13 14:51 | ER ---
Nurse's Notes [facility] Name: Gracy Carter Age: 52 yrs Sex: Female : 1970 Arrival Date: 05/13/2023 Time: 11:46 Bed 17 Private MD: Chuy Egan Diagnosis: Abdominal tenderness;Constipation;Acute cystitis Presentation: 05/13 11:55 Chief complaint: Patient states: hx of diverticulitis, pt reports abd pain for a few aa5 weeks but worse x 1 week ago. Coronavirus screen: At this time, the client does not indicate any symptoms associated with coronavirus-19. Ebola Screen: Patient denies travel to an Ebola-affected area in the 21 days before illness onset. Initial Sepsis Screen: Does the patient meet any 2 criteria? No. Patient's initial sepsis screen is negative. Does the patient have a suspected source of infection? No. Patient's initial sepsis screen is negative. Risk Assessment: Do you want to hurt yourself or someone else? Patient reports no desire to harm self or others. Onset of symptoms was April 2023. 11:55 Acuity: RADHA 3 aa5 11:55 Method Of Arrival: Ambulatory aa5 TRADER FIXED INCOME: 15:24 LMP N/A - Irregular menses eh3 Historical: - Allergies: 11:56 No Known Allergies; aa5 - PMHx: 11:55 Diabetes - IDDM; Hypertension; aa5 11:56 Diverticulitis; aa5 - PSHx: 11:56 Cholecystectomy; Hysterectomy; aa5 - Immunization history:: Adult Immunizations up to date. - Social history:: Smoking status: Patient denies any tobacco usage or history of. - Family history:: not pertinent. Screenin:00 [facility] ED Fall Risk Assessment (Adult) Score/Fall Risk Level 0 - 2 = Low Risk. Abuse eh3 screen: Denies threats or abuse. Denies injuries from another. Nutritional screening: No deficits noted. Tuberculosis screening: No symptoms or risk factors identified. Assessment: 12:00 General: Appears in no apparent distress. uncomfortable, Behavior is calm, cooperative, eh3 appropriate for age. Pain: Complains of pain in right lower quadrant. Neuro: Level of Consciousness is awake, alert, obeys commands, Oriented to person, place, time, situation. Cardiovascular: Capillary refill < 3 seconds Patient's skin is warm and dry. Respiratory: Airway is patent Respiratory effort is even, unlabored, Respiratory pattern is regular, symmetrical. GI: Abdomen is round non-distended, Bowel sounds present X 4 quads. Abd is soft X 4 quads Abdomen is tender to palpation in right lower quadrant and left lower quadrant. : Urine is clear. Derm: Skin is healthy with good turgor, Skin is pink, warm \T\ dry. Musculoskeletal: Circulation, motion, and sensation intact. Range of motion: intact in all extremities. 13:00 Reassessment: Patient appears in no apparent distress at this time. Patient and/or eh3 family updated on plan of care and expected duration. Pain level reassessed. Patient is alert, oriented x 3, equal unlabored respirations, skin warm/dry/pink. 14:00 Reassessment: Patient appears in no apparent distress at this time. Patient and/or eh3 family updated on plan of care and expected duration. Pain level reassessed. Patient is alert, oriented x 3, equal unlabored respirations, skin warm/dry/pink. 15:00 Reassessment: Patient appears in no apparent distress at this time. Patient and/or eh3 family updated on plan of care and expected duration. Pain level reassessed. Patient is alert, oriented x 3, equal unlabored respirations, skin warm/dry/pink. Vital Signs: 11:55 BP 161 / 100; Pulse 80; Resp 18 S; Temp 97.9(TE); Pulse Ox 100% on R/A; Weight 90.26 kg aa5 (R); Height 5 ft. 4 in. (R); Pain 7/10; 12:25 BP 145 / 85; Pulse 73; Resp 18; Pulse Ox 100% on R/A; eh3 13:00 BP 152 / 97; Pulse 74; Resp 18; Pulse Ox 100% on R/A; eh3 14:00 BP 143 / 83; Pulse 76; Resp 16; Pulse Ox 100% on R/A; eh3 15:00 BP 159 / 98; Pulse 77; Resp 17; Pulse Ox 100% ; eh3 11:55 Body Mass Index 34.16 (90.26 kg, 162.56 cm) aa5 11:55 Pain Scale: Adult aa5 ED Course: 11:48 Patient arrived in ED. am2 11:48 Chuy Egan MD is Private Physician. am2 11:55 Eric Epps MD is Attending Physician. belkys 11:55 Arm band placed on. aa5 11:56 Triage completed. aa5 12:00 Niya Phoenix, DUNCAN is Primary Nurse. eh3 12:00 Patient has correct armband on for positive identification. Bed in low position. Call eh3 light in reach. Side rails up X2. Provided Education on: N/A. Pulse ox on. NIBP on. Door closed. Noise minimized. Lights dimmed. Warm blanket given. 12:11 Inserted saline lock: 22 gauge in right forearm, using aseptic technique. Blood ds4 collected. 13:08 CT Abd/Pelvis - IV Contrast Only In Process Unspecified. EDMS 14:46 Chuy Egan MD is Referral Physician. belkys 14:46 Morenita Stevens MD is Referral Physician. belkys 15:24 No provider procedures requiring assistance completed. IV discontinued, intact, eh3 bleeding controlled, No redness/swelling at site. Pressure dressing applied. Administered Medications: 12:20 Drug: NS 0.9% IV 1000 ml Route: IV; Rate: 1 bolus; Site: right antecubital; eh3 14:00 Follow up: IV Status: Completed infusion; IV Intake: 1000ml eh3 12:20 Drug: Famotidine IVP 20 mg Route: IVP; Site: right antecubital; eh3 13:21 Follow up: Response: No adverse reaction eh3 12:20 Drug: Ondansetron IVP 4 mg Route: IVP; Site: right antecubital; eh3 13:21 Follow up: Response: No adverse reaction eh3 12:20 Drug: morphine IVP or IV 4 mg Route: IVP; Infused Over: 4 mins; Site: right antecubital;eh3 13:21 Follow up: Response: No adverse reaction eh3 14:45 Drug: Rocephin IV 1 grams Route: IV; Rate: per protocol; Site: right antecubital; eh3 15:14 Follow up: Response: No adverse reaction; IV Status: Completed infusion; IV Intake: [id number] 14:45 Drug: LevOfloxacin PO 750 mg Route: PO; eh3 15:14 Follow up: Response: No adverse reaction eh3 14:45 Drug: Lactulose PO 30 grams Volume: 45 ml; Route: PO; eh3 15:14 Follow up: Response: No adverse reaction eh3 Medication: 15:24 VIS not applicable for this client. eh3 Intake: 14:00 IV: 1000ml; Total: 1000ml. eh3 15:14 IV: 50ml; Total: 1050ml. eh3 Outcome: 14:51 Discharge ordered by . belkys 15:24 Discharged to home ambulatory. eh3 15:24 Condition: stable 15:24 Discharge instructions given to patient, Instructed on discharge instructions, follow up and referral plans. medication usage, Demonstrated understanding of instructions, follow-up care, medications, Prescriptions given X 4. 15:54 Patient left the ED. eh3 Signatures: Dispatcher [employer] EDMS Eric Epps MD MD cha Calderon, Audri, RN RN [email or web address] Huber Calvin Amanda am2 Hall, Erin, RN RN eh3
[2023-05-13 16:18] VITALS: TEMP 97.9; O2SAT 100
[2023-05-13 16:22] VITALS: BP 159/98
== END 2023-05-13 15:54 | disposition home or self-care (01) ==
LOC: ER 11:46
DX: N30.00 Acute cystitis without hematuria (principal); K59.00 Constipation, unspecified
CPT/HCPCS: 85025; 36415; 81003; 83690; 80053; 74177; Q9967; J2405; J7030; J0696; 96361; 96365; 96375; 99284